=== PATIENT | female | born 1960 ===

== ENCOUNTER 2017-05-02 23:06 | Inpatient (IN) | payer OTHER ==
[2017-05-02] MEDS ORDERED: Sodium Chloride 0.9% 1,000 ML IV STA (23:28)
[2017-05-02] MEDS ORDERED: Sodium Chloride 0.9% 1,000 ML ONE (23:41)
[2017-05-02 23:42] LABS: BASO % 0.2 % (0.0-2.0); EOS % 0.2 % (0.0-4.0); HEMATOCRIT 45.2 % (34.0-47.0); LYMPH # 1.1 K/uL (1.0-4.3); LYMPH % 6.1 % (20.0-40.0); MEAN CELL VOLUME 93.5 fL (81.0-99.0); MEAN CORPUSCULAR HEMOGLOBIN 31.7 pg (27.0-31.0); MEAN CORPUSCULAR HGB CONC 33.9 g/dL (33.0-37.0); MONO # 0.6 K/uL (0.0-0.8); MONO % 3.3 % (0.0-10.0); PLATELET COUNT 262 K/uL (130-400); RED CELL DISTRIBUTION WIDTH 13.3 % (11.5-14.5); WHITE BLOOD COUNT 17.5 K/uL (4.8-10.8)
--- NOTE | 2017-05-02 23:50 | C.PDOC ---
History Of Present Illness 56 year old female presents to the ED c/o sudden inset of abdominal pain associated with vomit that started 2-3 hours ago. Patient reports she has a surgery in her intestines 15 years ago for being unable to pass stool. Patient denies fever, chills, nausea, diarrhea, back pain. Time Seen by Provider: 05/02/17 23:21 Chief Complaint (Nursing): Abdominal Pain History Per: Patient History/Exam Limitations: no limitations Onset/Duration Of Symptoms: Hrs Current Symptoms Are (Timing): Still Present Location Of Pain/Discomfort: Diffuse Radiation Of Pain To:: None Quality Of Discomfort: "Pain" Associated Symptoms: Vomiting, Loss Of Appetite Exacerbating Factors: None Alleviating Factors: None Recent travel outside of the [place]: No Additional History Per: Patient Abnormal Vaginal Bleeding: No Past Medical History Reviewed: Historical Data, Nursing Documentation, Vital Signs Vital Signs: Last Vital Signs Temp 97.8 F 05/02/17 23:14 Pulse 55 L 05/02/17 23:14 Resp 20 05/02/17 23:14 BP 171/100 H 05/02/17 23:14 Pulse Ox 99 05/03/17 01:31 - Medical History PMH: No Chronic Diseases Other Surgeries: Intestine surgery Family History: States: Unknown Family Hx - Social History Hx Alcohol Use: No Hx Substance Use: No Review Of Systems Constitutional: Negative for: Fever, Chills Cardiovascular: Negative for: Chest Pain, Palpitations Respiratory: Negative for: Cough, Shortness of Breath Gastrointestinal: Positive for: Vomiting, Abdominal Pain. Negative for: Nausea , Diarrhea Genitourinary: Negative for: Vaginal Discharge, Vaginal Bleeding Skin: Negative for: Rash Neurological: Negative for: Weakness, Numbness Physical Exam - Physical Exam Appears: Non-toxic, No Acute Distress Skin: Normal Color, Warm, Dry Head: Atraumatic, Normacephalic Nose: No Discharge, No Deformity Oral Mucosa: Moist Neck: Normal ROM, Supple Chest: Symmetrical Cardiovascular: Rhythm Regular, No Murmur Respiratory: Normal Breath Sounds, No Rales, No Rhonchi, No Wheezing Gastrointestinal/Abdominal: Soft, Tenderness (Diffuse), No Distention, No Rebound, Other (Surgical scar ) Back: No CVA Tenderness Extremity: Normal ROM, No Pedal Edema, No Calf Tenderness, No Deformity, No Swelling Neurological/Psych: Oriented x3, Normal Speech, Normal Cognition Gait: Steady ED Course And Treatment - Laboratory Results Result Diagrams: 05/02/17 23:40 05/02/17 23:40 O2 Sat by Pulse Oximetry: 99 (On RA) Pulse Ox Interpretation: Normal - CT Scan/US CT abd/pelvis Other Rad Studies (CT/US): Interpreted By Me, Read By Radiologist, Radiology Report Reviewed CT/US Interpretation: FINDINGS: Lower thorax: Heart is mildly enlarged. Lung bases are hyperinflated. There is minimal atelectasis. and scarring There is a small hiatal hernia. ABDOMEN: Liver: There is fatty infiltration of the liver. Gallbladder and bile ducts: Gallbladder is partially distended. Common duct is prominent. There is. fluid in the left colic gutter. There is pericholecystic fluid. Pancreas: Pancreas is diffusely enlarged. There is pancreatic and peripancreatic edema. Spleen: unremarkable. Adrenals: unremarkable. Kidneys and ureters: There are low attenuation left renal lesions too small to accurately. characterize.Kidneys and ureters are otherwise unremarkable. Stomach and bowel: Stomach is incompletely distended. There is antral wall thickening. There is. duodenal wall thickening. Rotation is normal. There is mild proximal jejunal wall thickening. There are. mildly distended small bowel loops in the right lower quadrant. There are mildly distended fecalized. ileal loops in the right lower quadrant. Adjacent ileal loops are decompressed. There is mild terminal. ileal wall thickening. There is ascending colon and hepatic flexure wall thickening. There is mild. transverse colon wall thickening. Appendix: See stomach and bowel. PELVIS: Bladder: unremarkable. Reproductive: Uterus and adnexal structures are unremarkable. ABDOMEN and PELVIS: Intraperitoneal space: There is no free air. Bones/joints: There are degenerative changes in the osseus structures. Soft tissues: There is a small fat containing umbilical hernia. Vasculature: Vascular structures are unremarkable. Lymph nodes: There is no pathologic adenopathy. IMPRESSION: Pancreatitis with inflammatory change in the gastric antrum, duodenum and jejunum. and free fluid; fecalized ileal loops in the pelvis suggest partial obstruction; enteritis versus. enterocolitis Medical Decision Making Medical Decision Making: Impression : abdominal pain Plan: * Blood work * Obstructive series X-Ray * Pepcid 20 mg IVP * IV fluids * UA * CT abd/pelvis Disposition - Disposition Disposition: HOSPITALIZED Disposition Time: 01:45 Condition: SERIOUS Forms: Twined (Rwandan) - Clinical Impression Clinical Impression: Pancreatitis, Small bowel obstruction - Scribe Statement The provider has reviewed the documentation as recorded by the Scribe Arpit Walker All medical record entries made by the Scribe were at my direction and personally dictated by me. I have reviewed the chart and agree that the record accurately reflects my personal performance of the history, physical exam, medical decision making, and the department course for this patient. I have also personally directed, reviewed, and agree with the discharge instructions and disposition.
[2017-05-02 23:56] LABS: ALB/GLOB RATIO 1.4 (1.0-2.1); ALKALINE PHOSPHATASE 139 U/L (38-126); ALT/SGPT 212 U/L (9-52); AST/SGOT 263 U/L (14-36); BILIRUBIN,TOTAL 0.8 mg/dL (0.2-1.3); BLOOD UREA NITROGEN 15 mg/dL (7-17); CARBON DIOXIDE 32 mmol/L (22-30); CHLORIDE 106 mmol/L (98-107); GFR AFRICAN-AMERICAN > 60; GLUCOSE,RANDOM 156 mg/dL (65-105); POTASSIUM 3.6 mmol/L (3.6-5.2); SODIUM 145 mmol/L (132-148); TOTAL PROTEIN 7.5 g/dL (6.3-8.3)
[2017-05-03 00:13] LABS: RBC URINE 5 /hpf (0-3); URINE BILIRUBIN NEGATIVE (NEGATIVE); URINE BLOOD NEGATIVE (NEGATIVE); URINE COLOR Yellow (YELLOW); URINE GLUCOSE (UA) NORMAL (Normal); URINE KETONE NEGATIVE (NEGATIVE); URINE LEUKOCYTE ESTERASE NEG Leu/uL (Negative); URINE PROTEIN 1+ mg/dL (NEGATIVE); WBC URINE 3 /hpf (0-5)
[2017-05-03] MEDS ORDERED: Sodium Chloride 0.9% 1,000 ML IV STA (00:38)
[2017-05-03] MEDS ORDERED: Piperacillin/Tazobact 3.375 GM in Sodium Chloride 100 ML IVPB STA (00:38)
[2017-05-03] MEDS ORDERED: HYDROmorphone 0.5 mg/0.5 ml ISec IVP STA (00:54)
[2017-05-03] MEDS ORDERED: Piperacillin/Tazobact 3.375 gm 100 ML IVPB ONE (00:57)
[2017-05-03] MEDS ORDERED: HYDROmorphone 0.5 mg/0.5 ml ISec ONE (00:57)
--- NOTE | 2017-05-03 01:29 | CT ---
EXAM: CT Abdomen and Pelvis With Intravenous Contrast EXAM DATE/TIME: 05/03/2017 12:15 AM CLINICAL HISTORY: 56 years old, female; Pain; Abdominal pain; Additional info: Obstruction TECHNIQUE: Axial computed tomography images of the abdomen and pelvis with intravenous contrast. All CT scans at this facility use one or more dose reduction techniques, viz.: automated exposure control; ma/kV adjustment per patient size (including targeted exams where dose is matched to indication; i.e. head); or iterative reconstruction technique. Coronal and sagittal reformatted images were created and reviewed. CONTRAST: 100 mL of [id number] administered intravenously. COMPARISON: There are no prior studies for comparison. FINDINGS: Lower thorax: Heart is mildly enlarged. Lung bases are hyperinflated. There is minimal atelectasis and scarring There is a small hiatal hernia. ABDOMEN: Liver: There is fatty infiltration of the liver. Gallbladder and bile ducts: Gallbladder is partially distended. Common duct is prominent. There is fluid in the left colic gutter. There is pericholecystic fluid. Pancreas: Pancreas is diffusely enlarged. There is pancreatic and peripancreatic edema. Spleen: unremarkable Adrenals: unremarkable Kidneys and ureters: There are low attenuation left renal lesions too small to accurately characterize.Kidneys and ureters are otherwise unremarkable. Stomach and bowel: Stomach is incompletely distended. There is antral wall thickening. There is duodenal wall thickening. Rotation is normal. There is mild proximal jejunal wall thickening. There are mildly distended small bowel loops in the right lower quadrant. There are mildly distended fecalized ileal loops in the right lower quadrant. Adjacent ileal loops are decompressed. There is mild terminal ileal wall thickening. There is ascending colon and hepatic flexure wall thickening. There is mild transverse colon wall thickening. Appendix: See stomach and bowel PELVIS: Bladder: unremarkable Reproductive: Uterus and adnexal structures are unremarkable. ABDOMEN and PELVIS: Intraperitoneal space: There is no free air. Bones/joints: There are degenerative changes in the osseus structures. Soft tissues: There is a small fat containing umbilical hernia. Vasculature: Vascular structures are unremarkable. Lymph nodes: There is no pathologic adenopathy. IMPRESSION: Pancreatitis with inflammatory change in the gastric antrum, duodenum and jejunum and free fluid; fecalized ileal loops in the pelvis suggest partial obstruction; enteritis versus enterocolitis Additional findings as described above.
[2017-05-03 01:40] LABS: NEUTROPHIL 88 % (50-75); REACTIVE LYMPHOCYTES 3 % (0-0); TOTAL CELLS COUNTED 100
[2017-05-03 02:17] LABS: AMYLASE 3706 U/L (30-110)
[2017-05-03] MEDS ORDERED: HYDROmorphone 0.5 mg/0.5 ml ISec IVP PRN (02:36)
--- NOTE | 2017-05-03 02:45 | CP.PCM.CON ---
History of Present Illness - History of Present Illness History of Present Illness: Surgery Consult Note. Dr. Headley 56yo F with no significant PMHx here for evaluation of Abdominal pain. Patient reports pain which started yesterday at 5PM, associated with nausea and vomiting. Abdominal pain is located in the epigastric area and radiates to the RLQ and LLQ. Described as sharp and severe in quality. Emesis x10 reported, clear-yellow fluid, no blood. Last BM at 6PM, normal caliber, no blood, not dark. Last food intake at 1PM, no appetite since. She denies any fever but does report chills. She reports having "intestinal surgery" in [place] 15 years ago. States that the current pain feels different and is more severe. No urinary complaints. Denies any cardiac history. No CP/SOB. No headaches. No dizziness. No recent travel. No sick contacts. PMD: none PMHx: denies PSHx: "intestinal surgery" 15 years ago in [place] Social Hx: From [place], lives with daughter in [place] for past 3 years. Denies Tobacco. Occasional ETOH use (last 3 weeks ago). Denies illicit drugs NDKA Review of Systems - Review of Systems All systems: reviewed and no additional remarkable complaints except - Constitutional Constitutional: Anorexia, Chills. absent: Fever, Headache - Cardiovascular Cardiovascular: absent: Chest Pain, Dyspnea - Respiratory Respiratory: absent: Dyspnea - Gastrointestinal Gastrointestinal: Abdominal Pain, Nausea, Vomiting. absent: Coffee Ground Emesis, Diarrhea, Hematemesis, Hematochezia, Melena - Genitourinary Genitourinary: absent: Difficulty Urinating, Dysuria, Urinary Incontinence Past Patient History - Past Social History Smoking Status: Never Smoked - PSYCHIATRIC Hx Substance Use: No Meds Allergies/Adverse Reactions: Allergies Allergy/AdvReac Type Severity Reaction Status Date / Time No Known Allergies Allergy Verified 05/02/17 23:13 - Medications Medications: Current Medications Hydromorphone HCl (Dilaudid) 0.5 mg IVP Q4H PRN PRN Reason: Pain, moderate (4-7) Lactated Ringer's (Lactated Ringer's) 1,000 mls @ 250 mls/hr IV .Q4H ALYSSA Piperacillin Sod/Tazobactam Sod (Zosyn 3.375 Gm Iv Premix) 3.375 gm in 50 mls @ 100 mls/hr IVPB Q6H ALYSSA Ondansetron HCl (Zofran Inj) 4 mg IVP Q6H PRN PRN Reason: Nausea/Vomiting Physical Exam - Constitutional Appears: Non-toxic, No Acute Distress - Head Exam Head Exam: ATRAUMATIC, NORMAL INSPECTION, NORMOCEPHALIC - Eye Exam Eye Exam: EOMI - ENT Exam ENT Exam: Mucous Membranes Moist - Neck Exam Neck exam: Positive for: Full Rom - Respiratory Exam Respiratory Exam: NORMAL BREATHING PATTERN. absent: Accessory Muscle Use, Respiratory Distress - Cardiovascular Exam Cardiovascular Exam: RRR. absent: JVD - GI/Abdominal Exam GI & Abdominal Exam: Soft. absent: Distended, Firm, Guarding, Rebound, Rigid Additional comments: Tender to palpation in the Epigastric area, RLQ and LLQ. No Burris's. No Rebound, no guarding. Non distended. Midline incision scar noted infraumbilical, well healed - Extremities Exam Extremities exam: Positive for: normal inspection. Negative for: calf tenderness - Neurological Exam Neurological exam: Alert, Oriented x3 - Skin Skin Exam: Dry, Intact, Normal Color, Warm Results - Vital Signs Recent Vital Signs: Last Vital Signs Temp 97.8 F 05/02/17 23:14 Pulse 55 L 05/02/17 23:14 Resp 20 05/02/17 23:14 BP 171/100 H 05/02/17 23:14 Pulse Ox 99 05/03/17 01:43 - Labs Result Diagrams: 05/02/17 23:40 05/02/17 23:40 Labs: Laboratory Results - last 24 hr 05/02/17 05/02/17 05/02/17 23:40 23:40 23:53 WBC 17.5 H RBC 4.84 Hgb 15.3 Hct 45.2 MCV 93.5 MCH 31.7 H MCHC 33.9 RDW 13.3 Plt Count 262 MPV 10.0 Neut % (Auto) 90.2 H Lymph % (Auto) 6.1 L Piatt % (Auto) 3.3 Eos % (Auto) 0.2 Baso % (Auto) 0.2 Neut # 15.7 H Lymph # 1.1 Piatt # 0.6 Eos # 0.0 Baso # 0.0 Neutrophils % (Manual) 88 H Band Neutrophils % 2 Lymphocytes % (Manual) 5 L Reactive Lymphs % 3 H Monocytes % (Manual) 2 Platelet Estimate Normal Sodium 145 Potassium 3.6 Chloride 106 Carbon Dioxide 32 H Anion Gap 10 BUN 15 Creatinine 0.7 Est GFR ( Amer) > 60 Est GFR (Non-Af Amer) > 60 Random Glucose 156 H Calcium 8.0 L Total Bilirubin 0.8 AST 263 H ALT 212 H Alkaline Phosphatase 139 H Total Protein 7.5 Albumin 4.3 Globulin 3.2 Albumin/Globulin Ratio 1.4 Amylase Lipase Urine Color Yellow Urine Clarity Clear Urine pH 6.0 Ur Specific Abell 1.021 Urine Protein 1+ H Urine Glucose (UA) Normal Urine Ketones Negative Urine Blood Negative Urine Nitrate Negative Urine Bilirubin Negative Urine Urobilinogen 2.0 H Ur Leukocyte Esterase Neg Urine WBC (Auto) 3 Urine RBC (Auto) 5 H Ur Squamous Epith Cells 10 H 05/03/17 01:38 WBC RBC Hgb Hct MCV MCH MCHC RDW Plt Count MPV Neut % (Auto) Lymph % (Auto) Piatt % (Auto) Eos % (Auto) Baso % (Auto) Neut # Lymph # Piatt # Eos # Baso # Neutrophils % (Manual) Band Neutrophils % Lymphocytes % (Manual) Reactive Lymphs % Monocytes % (Manual) Platelet Estimate Sodium Potassium Chloride Carbon Dioxide Anion Gap BUN Creatinine Est GFR ( Amer) Est GFR (Non-Af Amer) Random Glucose Calcium Total Bilirubin AST ALT Alkaline Phosphatase Total Protein Albumin Globulin Albumin/Globulin Ratio Amylase 3706 H Lipase 49046 H Urine Color Urine Clarity Urine pH Ur Specific Abell Urine Protein Urine Glucose (UA) Urine Ketones Urine Blood Urine Nitrate Urine Bilirubin Urine Urobilinogen Ur Leukocyte Esterase Urine WBC (Auto) Urine RBC (Auto) Ur Squamous Epith Cells Assessment & Plan - Assessment and Plan (Free Text) Assessment: 56yo F with Acute Pancreatitis, Enterocolitis and distended gallbladder. Possible distal partial bowel obstruction - LFTs elevated. Tbili wnl - Leukocytosis - CT scan noted - F/u Abd US to r/o cholelithiasis - Aggressive IVF - NPO bowel rest - IV Abx - Zofran prn - May consider NGT if patient continues to vomit Further recs as per Dr. Fang Blake PGY1 surgery pager: [phone]
--- NOTE | 2017-05-03 03:06 | CP.PCM.HP ---
<Blair Young - Last Filed: 05/03/17 03:33> History of Present Illness - History of Present Illness History of Present Illness: CC: Abdominal Pain HPI: Patient is a 56 year old female with no past medical history who was brought to the ED by her daughters with complaint of abdominal pain that started yesterday between 5-6pm, which patient describes as "tightness" that is diffuse. Patient is unable to quantify her pain but states that it has increased in intensity since its onset. Patient took pepto-bismol, which provided no relief and admits to associated symptoms of nausea and vomiting ( clear yellow fluid about 9-10 times since the onset of her abdominal pain). Patient's last BM was around 5-6pm yesterday. Patient denies fever, chills, changes in her bowel movement, chest pain, palpitations, SOB, dizziness, hematochezia, hematemesis itchiness and recent sickness PMD: None PMHx: Unknown PSHx: intestinal surgery due to constipation in [place] ( 15-18 years ago) FHx: Diabetes Medications: None Allergies: NKDA Social Hx: Lives with her two daughters. Denies current or former use of tobacco and illicit drugs. Admits to ETOH socially Present on Admission - Present on Admission Any Indicators Present on Admission: No Review of Systems - Constitutional Constitutional: absent: Chills, Excessive Sweating, Fever, Headache, Weakness - EENT Eyes: absent: Blurred Vision, Change in Vision Ears: absent: Dizziness - Cardiovascular Cardiovascular: absent: Chest Pain, Chest Pain at Rest, Chest Pain with Activity , Dyspnea, Dyspnea on Exertion, Edema, Lightheadedness, Palpitations - Respiratory Respiratory: absent: Dyspnea, Hemoptysis, Dyspnea on Exertion - Gastrointestinal Gastrointestinal: Abdominal Pain, Nausea, Vomiting. absent: Change in Bowel Habits, Change in Stool Character, Constipation, Cramping, Diarrhea, Dysphagia, Excessive Flatus, Hematemesis, Hematochezia - Genitourinary Genitourinary: absent: Difficulty Urinating, Dysuria, Hematuria - Musculoskeletal Musculoskeletal: absent: Back Pain - Integumentary Integumentary: absent: Pruritus, Jaundice - Neurological Neurological: absent: Dizziness, Headaches - Endocrine Endocrine: absent: Fatigue, Palpitations Past Patient History - Past Social History Smoking Status: Never Smoked - PSYCHIATRIC Hx Substance Use: No Meds Allergies/Adverse Reactions: Allergies Allergy/AdvReac Type Severity Reaction Status Date / Time No Known Allergies Allergy Verified 05/02/17 23:13 Physical Exam - Constitutional Appears: No Acute Distress - Head Exam Head Exam: ATRAUMATIC, NORMAL INSPECTION - Eye Exam Eye Exam: EOMI, Normal appearance - ENT Exam ENT Exam: Mucous Membranes Moist - Respiratory Exam Respiratory Exam: Clear to Auscultation Bilateral, NORMAL BREATHING PATTERN. absent: Decreased Breath Sounds, Rales, Rhonchi, Wheezes - Cardiovascular Exam Cardiovascular Exam: REGULAR RHYTHM, +S1, +S2 - GI/Abdominal Exam GI & Abdominal Exam: Soft, Tenderness Additional comments: tenderness to palpation diffusely Negative lockett sign Midline infraumbilical incision scar - Extremities Exam Extremities exam: Positive for: normal inspection. Negative for: calf tenderness, pedal edema, tenderness - Back Exam Back exam: absent: CVA tenderness (L), CVA tenderness (R), tenderness - Neurological Exam Neurological exam: Alert, Oriented x3 - Psychiatric Exam Psychiatric exam: Normal Affect, Normal Mood - Skin Skin Exam: Normal Color Results - Vital Signs Recent Vital Signs: Last Vital Signs Temp 97.8 F 05/02/17 23:14 Pulse 55 L 05/02/17 23:14 Resp 20 05/02/17 23:14 BP 171/100 H 05/02/17 23:14 Pulse Ox 99 05/03/17 01:43 - Labs Result Diagrams: 05/02/17 23:40 05/02/17 23:40 Labs: Laboratory Results - last 24 hr 05/02/17 05/02/17 05/02/17 23:40 23:40 23:53 WBC 17.5 H RBC 4.84 Hgb 15.3 Hct 45.2 MCV 93.5 MCH 31.7 H MCHC 33.9 RDW 13.3 Plt Count 262 MPV 10.0 Neut % (Auto) 90.2 H Lymph % (Auto) 6.1 L [place] % (Auto) 3.3 Eos % (Auto) 0.2 Baso % (Auto) 0.2 Neut # 15.7 H Lymph # 1.1 [place] # 0.6 Eos # 0.0 Baso # 0.0 Neutrophils % (Manual) 88 H Band Neutrophils % 2 Lymphocytes % (Manual) 5 L Reactive Lymphs % 3 H Monocytes % (Manual) 2 Platelet Estimate Normal Sodium 145 Potassium 3.6 Chloride 106 Carbon Dioxide 32 H Anion Gap 10 BUN 15 Creatinine 0.7 Est GFR ( Amer) > 60 Est GFR (Non-Af Amer) > 60 Random Glucose 156 H Calcium 8.0 L Total Bilirubin 0.8 AST 263 H ALT 212 H Alkaline Phosphatase 139 H Total Protein 7.5 Albumin 4.3 Globulin 3.2 Albumin/Globulin Ratio 1.4 Amylase Lipase Urine Color Yellow Urine Clarity Clear Urine pH 6.0 Ur Specific [place] 1.021 Urine Protein 1+ H Urine Glucose (UA) Normal Urine Ketones Negative Urine Blood Negative Urine Nitrate Negative Urine Bilirubin Negative Urine Urobilinogen 2.0 H Ur Leukocyte Esterase Neg Urine WBC (Auto) 3 Urine RBC (Auto) 5 H Ur Squamous Epith Cells 10 H 05/03/17 01:38 WBC RBC Hgb Hct MCV MCH MCHC RDW Plt Count MPV Neut % (Auto) Lymph % (Auto) [place] % (Auto) Eos % (Auto) Baso % (Auto) Neut # Lymph # [place] # Eos # Baso # Neutrophils % (Manual) Band Neutrophils % Lymphocytes % (Manual) Reactive Lymphs % Monocytes % (Manual) Platelet Estimate Sodium Potassium Chloride Carbon Dioxide Anion Gap BUN Creatinine Est GFR ( Amer) Est GFR (Non-Af Amer) Random Glucose Calcium Total Bilirubin AST ALT Alkaline Phosphatase Total Protein Albumin Globulin Albumin/Globulin Ratio Amylase 3706 H Lipase 34685 H Urine Color Urine Clarity Urine pH Ur Specific [place] Urine Protein Urine Glucose (UA) Urine Ketones Urine Blood Urine Nitrate Urine Bilirubin Urine Urobilinogen Ur Leukocyte Esterase Urine WBC (Auto) Urine RBC (Auto) Ur Squamous Epith Cells Assessment & Plan (1) Pancreatitis Assessment and Plan: Surgery consult, Dr. Headley----> Help appreciated * Management as per recommendation On admission: Amylase/Lipase: 32,575/3706 AST/ALT:263/212 Imaging: CT Abdomen/Pelvis: Pancreatitis with inflammatory change in the gastric antrum, duodenum and jejunum and free fluid; fecalized ileal loops in the pelvis suggest partial obstruction; enteritis versus enterocolitis. Gallbladder is partially distended. Common duct is prominent. There is fluid in the left colic gutter. There is pericholecystic fluid. Pancreas is diffusely enlarged. There is pancreatic and peripancreatic edema. Medications/Management: NPO LR @ 250 mls/hr Morphine 1mg Q4H prn ( Moderate pain) Morphine 2mg Q4H prn ( Severe pain) Cipro 400mg IV Q12H (Started 05/03) Flagyl 500mg IV Q8H (Started 05/03) Labs: * F/u lipid panel Status: Acute (2) Partial small bowel obstruction Assessment and Plan: CT Abdomen/Pelvis: fecalized ileal loops in the pelvis suggest partial obstruction Surgery consult, Dr. Headley----> Help appreciated * Management as per recommendation Management: * NPO Status: Acute (3) Leukocytosis Assessment and Plan: On admission: WBC: 17.5, no bandemia Possibly secondary to acute pancreatitis Medication/Management: * LR @ 250 mls/hr * Cipro 400mg IV Q12H ( Started 05/03) * Flagyl 500mg IV Q8H ( Started 05/03) Status: Acute (4) Elevated liver enzymes Assessment and Plan: Surgery consult, Dr. Headley----> Help appreciated * Management as per recommendation On admission: AST/ALT:263/212 Imaging: CT Abdomen/Pelvis: Gallbladder is partially distended. Common duct is prominent. There is fluid in the left colic gutter. There is pericholecystic fluid. Status: Acute (5) Elevated random blood glucose level Assessment and Plan: On admission: * 156 F/u HgbA1C Accuchecks Q8H Status: Acute (6) Prophylactic measure Assessment and Plan: GI: Protonix 40mg PO daily DVT: SCDs, anticogulation on hold incase surgical intervention is indicated Status: Acute <Rudy Liu - Last Filed: 05/03/17 06:25> Results - Vital Signs Recent Vital Signs: Last Vital Signs Temp 98.8 F 05/03/17 04:50 Pulse 55 L 05/03/17 04:50 Resp 20 05/03/17 04:50 BP 150/88 05/03/17 04:50 Pulse Ox 95 05/03/17 04:50 - Labs Result Diagrams: 05/02/17 23:40 05/02/17 23:40 Labs: Laboratory Results - last 24 hr 05/02/17 05/02/17 05/02/17 23:40 23:40 23:53 WBC 17.5 H RBC 4.84 Hgb 15.3 Hct 45.2 MCV 93.5 MCH 31.7 H MCHC 33.9 RDW 13.3 Plt Count 262 MPV 10.0 Neut % (Auto) 90.2 H Lymph % (Auto) 6.1 L [place] % (Auto) 3.3 Eos % (Auto) 0.2 Baso % (Auto) 0.2 Neut # 15.7 H Lymph # 1.1 [place] # 0.6 Eos # 0.0 Baso # 0.0 Neutrophils % (Manual) 88 H Band Neutrophils % 2 Lymphocytes % (Manual) 5 L Reactive Lymphs % 3 H Monocytes % (Manual) 2 Platelet Estimate Normal Sodium 145 Potassium 3.6 Chloride 106 Carbon Dioxide 32 H Anion Gap 10 BUN 15 Creatinine 0.7 Est GFR ( Amer) > 60 Est GFR (Non-Af Amer) > 60 Random Glucose 156 H Calcium 8.0 L Total Bilirubin 0.8 AST 263 H ALT 212 H Alkaline Phosphatase 139 H Total Protein 7.5 Albumin 4.3 Globulin 3.2 Albumin/Globulin Ratio 1.4 Amylase Lipase Urine Color Yellow Urine Clarity Clear Urine pH 6.0 Ur Specific [place] 1.021 Urine Protein 1+ H Urine Glucose (UA) Normal Urine Ketones Negative Urine Blood Negative Urine Nitrate Negative Urine Bilirubin Negative Urine Urobilinogen 2.0 H Ur Leukocyte Esterase Neg Urine WBC (Auto) 3 Urine RBC (Auto) 5 H Ur Squamous Epith Cells 10 H 05/03/17 01:38 WBC RBC Hgb Hct MCV MCH MCHC RDW Plt Count MPV Neut % (Auto) Lymph % (Auto) [place] % (Auto) Eos % (Auto) Baso % (Auto) Neut # Lymph # [place] # Eos # Baso # Neutrophils % (Manual) Band Neutrophils % Lymphocytes % (Manual) Reactive Lymphs % Monocytes % (Manual) Platelet Estimate Sodium Potassium Chloride Carbon Dioxide Anion Gap BUN Creatinine Est GFR ( Amer) Est GFR (Non-Af Amer) Random Glucose Calcium Total Bilirubin AST ALT Alkaline Phosphatase Total Protein Albumin Globulin Albumin/Globulin Ratio Amylase 3706 H Lipase 67469 H Urine Color Urine Clarity Urine pH Ur Specific [place] Urine Protein Urine Glucose (UA) Urine Ketones Urine Blood Urine Nitrate Urine Bilirubin Urine Urobilinogen Ur Leukocyte Esterase Urine WBC (Auto) Urine RBC (Auto) Ur Squamous Epith Cells Assessment & Plan - Date & Time Date: 05/03/17 (I have seen and examined the patient. I agree with the findings and plan of care as documented by Dr. Young. Patient with acute pancreatitis and partial SBO. Consult to surgery. also with Leukocytosis. Cipro and flagyl for now. Check blood cultures. NPO. IVF. Check Fasting lipid panel. Symptomatic treatment. Monitor for acute changes.) Time: 06:23 Attending/Attestation - Attestation I have personally seen and examined this patient.: Yes I have fully participated in the care of the patient.: Yes I have reviewed all pertinent clinical information: Yes
[2017-05-03] MEDS ORDERED: Lactated Ringer's 1,000 ML ONE (03:38)
[2017-05-03] MEDS: Lactated Ringer's 1,000 ML IV SCH ×7 (04:07→23:35)
[2017-05-03] MEDS: Ciprofloxacin 400mg/200ml D5W 400 MG/200 ML BAG IVPB SCH ×2 (04:20→14:21)
[2017-05-03] MEDS ORDERED: Ciprofloxacin 400mg/200ml D5W 400 MG/200 ML BAG IVPB ONE (04:20)
[2017-05-03] MEDS: metroNIDAZOLE IV 500 mg/100 ml 500 MG/100 ML BAG IVPB SCH ×3 (06:22→20:52)
--- NOTE | 2017-05-03 06:49 | US ---
EXAM: US Abdomen Complete CLINICAL HISTORY: 56 years old, female; Pain and abnormal findings; Abnormal radiologic finding of the abdomen; Radiologic exam and body structure: CT abd; Abdominal pain; Epigastric; Additional info: Distended gallbladder TECHNIQUE: Real-time ultrasound of the abdomen (complete) with image documentation. Real time cine loop images are submitted. COMPARISON: No relevant prior studies available. FINDINGS: Artifacts: Limited due to bowel gas shadowing. Limited due to shadowing from the ribs. Liver: Echogenic fatty liver measuring 15.4 cm. Limited evaluation of the liver due to shadowing. The hepatic flow Gallbladder: Partially distended gallbladder with multiple gallstones and 4 mm gallbladder wall thickening and minimal pericholecystic fluid.There was right upper quadrant tenderness during the sonographic examination. Common bile duct: The common bile duct measures 7 mm which is prominent. Pancreas: The pancreas is not well-seen. Echogenic pancreas. Kidneys: Right kidney measures 10.1 x 4.3 x 4.8 cm. The left kidney measures 9.5 x 5.1 x 5.7 cm. There is left renal hypoechoic cyst with calcification measuring 0.8 x 0.8 x 0.9 cm. No stones. No hydronephrosis. Spleen: The spleen measures 9.4 cm. Spleen calcifications. Aorta: The proximal aorta measures 1.8 cm. The mid abdominal aorta is obscured by bowel gas. Inferior vena cava: The IVC is seen. IMPRESSION: 1. Partially distended gallbladder with multiple gallstones and 4 mm gallbladder wall thickening and minimal pericholecystic fluid.There was right upper quadrant tenderness during the sonographic examination. Correlation with clinical data is recommended to evaluate for acute cholecystitis. 2. Prominent common bile duct measuring 7 mm.
[2017-05-03] MEDS ORDERED: Piperacill/Tazo 3.375gm in Dex 3.375 GM/50 ML BAG IVPB SCH (07:45)
[2017-05-03 09:13] LABS: CHOLESTEROL 170 mg/dL (0-199)
[2017-05-03] MEDS: Pantoprazole 40 mg EC Tab PO SCH (09:29)
--- NOTE | 2017-05-03 09:59 | CP.PCM.PN ---
Addendum entered and electronically signed by Elba León DO 05/03/17 17:15: Nidia (Daughter): [phone] Addendum entered and electronically signed by Elba León DO 05/03/17 13:45: A1c is 5.9 Physical exam: RUQ tenderness and Midepigastric pain per DR. Carlos Alberto Ruth Patient explained gallstone pancreatitis and that she is going to be scheduled for MRCP to evaluate patient further, likely to need gallbladder surgery when pancreatitis resolves Addendum entered and electronically signed by Elba León DO 05/03/17 10:39: 05/03 social work evaluation: Patient states she does not have insurance and is worried about paying for the exams during her stay at the hospital Original Note: <Elba León - Last Filed: 05/03/17 10:37> Subjective - Date & Time of Evaluation Date of Evaluation: 05/03/17 Time of Evaluation: 09:58 - Subjective Subjective: Progress note for Dr. Ruth Patient seen and examined at bedside. admits to abdominal pain mainly in midepigastric, and lower quadrants bilaterally. Patient denies fever, chills, nausea, vomiting, diarrhea. Patient states she does not have insurance and is worried about paying for the treatments ant exams Objective - Vital Signs/Intake and Output Vital Signs (last 24 hours): Temp Pulse Resp BP Pulse Ox 98.8 F 55 L 20 150/88 95 05/03/17 04:50 05/03/17 04:50 05/03/17 04:50 05/03/17 04:50 05/03/17 04:50 Intake and Output: 05/03/17 05/03/17 06:59 18:59 Intake Total 450 Balance 450 - Medications Medications: Current Medications Cholestyramine Resin (Prevalite) 4 gm PO QID ALYSSA Lactated Ringer's (Lactated Ringer's) 1,000 mls @ 250 mls/hr IV .Q4H [facility] Last Admin: 05/03/17 04:07 Dose: 250 mls/hr Ciprofloxacin (Cipro 400mg/200ml Dsw) 400 mg in 200 mls @ 133 mls/hr IVPB Q12H [facility] Last Admin: 05/03/17 04:20 Dose: 133 mls/hr Metronidazole (Flagyl) 500 mg in 100 mls @ 100 mls/hr IVPB Q8 [facility] Last Admin: 05/03/17 06:22 Dose: 100 mls/hr Morphine Sulfate (Morphine) 1 mg IVP Q4 PRN PRN Reason: Pain, moderate (4-7) Last Admin: 05/03/17 04:12 Dose: 1 mg Morphine Sulfate (Morphine) 2 mg IVP Q4 PRN PRN Reason: Pain, severe (8-10) Ondansetron HCl (Zofran Inj) 4 mg IVP Q6H PRN PRN Reason: Nausea/Vomiting Pantoprazole Sodium (Protonix Ec Tab) 40 mg PO DAILY [facility] Last Admin: 05/03/17 09:29 Dose: 40 mg - Labs Labs: 05/02/17 23:40 05/02/17 23:40 - Constitutional Appears: Non-toxic, No Acute Distress - Head Exam Head Exam: NORMAL INSPECTION - Eye Exam Eye Exam: EOMI, Normal appearance Pupil Exam: PERRL - ENT Exam ENT Exam: Mucous Membranes Moist, Normal Exam. absent: Mucous Membranes Dry - Neck Exam Neck Exam: Full ROM. absent: Lymphadenopathy, Thyromegaly - Cardiovascular Exam Cardiovascular Exam: Bradycardia, REGULAR RHYTHM, +S1, +S2 - GI/Abdominal Exam GI & Abdominal Exam: Distended, Soft, Tenderness. absent: Pulsatile Mass, Rebound - Extremities Exam Extremities Exam: Full ROM, Normal Inspection. absent: Pedal Edema - Neurological Exam Neurological Exam: Alert, Awake - Psychiatric Exam Psychiatric exam: Normal Affect, Normal Mood - Skin Skin Exam: Dry, Intact, Normal Color, Warm Assessment and Plan - Assessment and Plan (Free Text) Assessment: (1) Pancreatitis Assessment and Plan: Surgery consult, Dr. Headley----> Help appreciated * Management as per recommendation On admission: Lipase 91552 Amylase 3706 05/02 AST/ALT:263/212 Imaging: CT Abdomen/Pelvis: Pancreatitis with inflammatory change in the gastric antrum, duodenum and jejunum and free fluid; fecalized ileal loops in the pelvis suggest partial obstruction; enteritis versus enterocolitis. Gallbladder is partially distended. Common duct is prominent. There is fluid in the left colic gutter. There is pericholecystic fluid. Pancreas is diffusely enlarged. There is pancreatic and peripancreatic edema. Medications/Management: NPO LR @ 250 mls/hr Morphine 1mg Q4H prn ( Moderate pain) Morphine 2mg Q4H prn ( Severe pain) Cipro 400mg IV Q12H (Started 05/03) Flagyl 500mg IV Q8H (Started 05/03) Labs: * 05/03 Lipid panel: Trigylcerides 61, Cholesterol 170, LDL 120, HDL 44 Status: Acute (2) Partial small bowel obstruction Assessment and Plan: CT Abdomen/Pelvis: fecalized ileal loops in the pelvis suggest partial obstruction Surgery consult, Dr. Headley----> Help appreciated * Management as per recommendation Management: * NPO Status: Acute (3) Leukocytosis Assessment and Plan: On admission: WBC: 17.5, no bandemia Possibly secondary to acute pancreatitis Medication/Management: * LR @ 250 mls/hr * Cipro 400mg IV Q12H ( Started 05/03) * Flagyl 500mg IV Q8H ( Started 05/03) Status: Acute (4) Elevated liver enzymes Assessment and Plan: Surgery consult, Dr. Headley----> Help appreciated * Management as per recommendation On admission: 05/02 AST/ALT:263/212 Imaging: CT Abdomen/Pelvis: Gallbladder is partially distended. Common duct is prominent. There is fluid in the left colic gutter. There is pericholecystic fluid. Status: Acute (5) Elevated random blood glucose level Assessment and Plan: On admission: * 156 F/u HgbA1C Accuchecks Q8H Status: Acute (6) Prophylaxis Assessment and Plan: GI: Protonix 40mg PO daily DVT: SCDs, anticogulation on hold incase surgical intervention is indicated Status: Acute Elba León DO PGY1 d/w Dr. Carlos Alberto Ruth <Carlos Alberto Ruth - Last Filed: 05/03/17 20:49> Objective - Vital Signs/Intake and Output Vital Signs (last 24 hours): Temp Pulse Resp BP Pulse Ox 98.3 F 57 L 20 152/70 H 96 05/03/17 15:00 05/03/17 15:00 05/03/17 15:00 05/03/17 17:53 05/03/17 15:00 Intake and Output: 05/03/17 05/04/17 18:59 06:59 Intake Total 450 Balance 450 - Medications Medications: Current Medications Docusate Sodium (Colace) 100 mg PO TID [facility] Last Admin: 05/03/17 17:25 Dose: 100 mg Heparin Sodium (Porcine) (Heparin) 5,000 units SC Q8 [facility] Last Admin: 05/03/17 15:48 Dose: 5,000 units Lactated Ringer's (Lactated Ringer's) 1,000 mls @ 250 mls/hr IV .Q4H [facility] Last Admin: 05/03/17 14:20 Dose: 250 mls/hr Ciprofloxacin (Cipro 400mg/200ml Dsw) 400 mg in 200 mls @ 133 mls/hr IVPB Q12H [facility] Last Admin: 05/03/17 14:21 Dose: 133 mls/hr Metronidazole (Flagyl) 500 mg in 100 mls @ 100 mls/hr IVPB Q8 [facility] Last Admin: 05/03/17 14:18 Dose: 100 mls/hr Morphine Sulfate (Morphine) 1 mg IVP Q4 PRN PRN Reason: Pain, moderate (4-7) Last Admin: 05/03/17 04:12 Dose: 1 mg Morphine Sulfate (Morphine) 2 mg IVP Q4 PRN PRN Reason: Pain, severe (8-10) Last Admin: 05/03/17 17:24 Dose: 2 mg Ondansetron HCl (Zofran Inj) 4 mg IVP Q6H PRN PRN Reason: Nausea/Vomiting Pantoprazole Sodium (Protonix Ec Tab) 40 mg PO DAILY [facility] Last Admin: 05/03/17 09:29 Dose: 40 mg - Labs Labs: 05/02/17 23:40 05/02/17 23:40 Attending/Attestation - Attestation I have personally seen and examined this patient.: Yes I have fully participated in the care of the patient.: Yes I have reviewed all pertinent clinical information, including history, physical exam and plan: Yes Notes (Text): 05/03/17 20:21 Patient was seen and examined at 11:40 AM 05/03/17 356 B with Daughter Nidia [phone] who translated Armenian Exam, assessment and plan were thoroughly gone over with the resident. Also on ROS: NO bowel movement NO vomiting (+) Nausea NOT passing aldo today Also on EXAM: GI: RUQ and Epigastric Pain with palpation, NO guarding/rebound tenderness Assessments: 1). Acute Pancreatitis This could be secondary to Gallstone Pancreatitis considering findings on CT Abdomen/Pelvis and U/S Abdomen: gallstone in gallbladder and dilated CBD MRCP ordered 05/03/17 but could not be performed: Medicine Team please make sure that it is done on morning 05/04/17. LR 250 ml/hr NPO for now GI Dr. Luna/Mk 2). Partial Small Bowel Obstruction She is not vomiting but if she does and is persistent then have NGT placed Obstruction Series shows fecal retention in the right colon and rectum with nonspecific small bowel gas pattern Surgery Dr. Headley 3). Possible Cholecystitis (likely) As seen on U/S Abdomen Will need to resolve the Pancreatitis first Explained to Daughter Nidia that the Gallbladder will likely have to be removed F/U with Surgery Team's recommendations concerning this issue 4). Elevated LFTs Likely secondary to the Cholecystitis, Pancreatitis F/U MRCP 5). Leukocytosis Secondary to Cholecystitis? Secondary to Pancreatitis? Secondary to Enteritis/Entercolitis as seen on CT Abdomen/Pelvis? Ciprofloxaxin 400 mg IV Q12H Metronidazole 500 mg IV Q8H F/U Blood Culture F/U Urine Culture 6). Prophylaxis Morphine 1 mg IV Q4H PRN Moderate Pain Morphine 2 mg IV Q4H PRN Severe Pain Protonix 40 mg IV 1x/day Heparin 5,000 units SC Q8H and Bilateral SCDs Colace 100 mg PO TID Zofran 4 mg IV Q6h PRN N/V Carlos Alberto Ruth D.O.
[2017-05-03] MEDS ORDERED: Cholestyramine 4 gm/5.5 gm UD Packet PO SCH (10:00)
--- NOTE | 2017-05-03 10:24 | CP.PCM.CON ---
<Ratna Molina - Last Filed: 05/03/17 10:19> History of Present Illness - History of Present Illness History of Present Illness: Gastroenterology Fellow/PGY5 Consult Note 56 year old female with history of bowel resection (15 years ago) presenting with abdominal pain and vomiting. Patient and daughter at bedside note she had sudden onset of severe epigastric to mid abdominal pain without radiation to back or shoulder. She endorses ten episodes of bilious vomiting. Associated chills and sweats. Denies further vomiting since admission and abdominal pain slightly improved. Denies fever, hematemesis, diarrhea, constipation, melena, hematochezia, or unintentional weight loss. She had not had similar symptoms in the past or diagnose with cholelithiasis in the past. No prior EGD or colonoscopy. Family- denies stomach cancer, colon cancer Social- denies tobacco, alcohol, illicit drug use Surgery- bowel resection for "constipation" 15 years ago in [place] Review of Systems - Review of Systems Review of Systems: 12-point review of systems negative except for as above Past Patient History - Past Medical History & Family History Past Medical History?: Yes - Past Social History Smoking Status: Never Smoked - CARDIAC Hx Cardiac Disorders: No - PULMONARY Hx Respiratory Disorders: No - NEUROLOGICAL Hx Neurological Disorder: No - HEENT Hx HEENT Problems: No - RENAL Hx Chronic Kidney Disease: No - ENDOCRINE/METABOLIC Hx Endocrine Disorders: No - HEMATOLOGICAL/ONCOLOGICAL Hx Blood Disorders: No - INTEGUMENTARY Hx Dermatological Problems: No - MUSCULOSKELETAL/RHEUMATOLOGICAL Hx Falls: No - GASTROINTESTINAL Hx Gastrointestinal Disorders: Yes Other/Comment: "intestinal surgery 15-18 years ago from [place]" - GENITOURINARY/GYNECOLOGICAL Hx Genitourinary Disorders: No - PSYCHIATRIC Hx Substance Use: No - SURGICAL HISTORY Hx Surgeries: Yes Other/Comment: "intestinal surgery 15-18 years ago from [place]" - ANESTHESIA Hx Anesthesia: Yes Hx Anesthesia Reactions: No Hx Malignant Hyperthermia: No Meds Allergies/Adverse Reactions: Allergies Allergy/AdvReac Type Severity Reaction Status Date / Time No Known Allergies Allergy Verified 05/02/17 23:13 - Medications Medications: Current Medications Lactated Ringer's (Lactated Ringer's) 1,000 mls @ 250 mls/hr IV .Q4H [facility] Last Admin: 05/03/17 04:07 Dose: 250 mls/hr Ciprofloxacin (Cipro 400mg/200ml Dsw) 400 mg in 200 mls @ 133 mls/hr IVPB Q12H [facility] Last Admin: 05/03/17 04:20 Dose: 133 mls/hr Metronidazole (Flagyl) 500 mg in 100 mls @ 100 mls/hr IVPB Q8 [facility] Last Admin: 05/03/17 06:22 Dose: 100 mls/hr Morphine Sulfate (Morphine) 1 mg IVP Q4 PRN PRN Reason: Pain, moderate (4-7) Last Admin: 05/03/17 04:12 Dose: 1 mg Morphine Sulfate (Morphine) 2 mg IVP Q4 PRN PRN Reason: Pain, severe (8-10) Ondansetron HCl (Zofran Inj) 4 mg IVP Q6H PRN PRN Reason: Nausea/Vomiting Pantoprazole Sodium (Protonix Ec Tab) 40 mg PO DAILY [facility] Last Admin: 05/03/17 09:29 Dose: 40 mg Physical Exam - Constitutional Appears: Non-toxic, No Acute Distress - Head Exam Head Exam: ATRAUMATIC, NORMOCEPHALIC - Eye Exam Eye Exam: EOMI, PERRL. absent: Scleral icterus Pupil Exam: PERRL. absent: Miosis, Mydriatic - ENT Exam ENT Exam: Mucous Membranes Moist, Normal Oropharynx - Neck Exam Neck exam: Positive for: Full Rom, Normal Inspection - Respiratory Exam Respiratory Exam: Clear to Auscultation Bilateral. absent: Rales, Rhonchi, Wheezes - Cardiovascular Exam Cardiovascular Exam: RRR, +S1, +S2. absent: Gallop, Rubs - GI/Abdominal Exam GI & Abdominal Exam: Normal Bowel Sounds, Soft, Tenderness. absent: Distended, Firm, Guarding, Organomegaly, Rebound, Rigid Additional comments: diffuse tenderness to palpation - Extremities Exam Extremities exam: Positive for: normal inspection. Negative for: pedal edema - Neurological Exam Neurological exam: Alert - Psychiatric Exam Psychiatric exam: Normal Affect, Normal Mood - Skin Skin Exam: Dry, Intact, Normal Color, Warm Results - Vital Signs Recent Vital Signs: Last Vital Signs Temp 98.4 F 05/03/17 10:05 Pulse 60 05/03/17 10:05 Resp 20 05/03/17 10:05 BP 162/72 H 05/03/17 10:05 Pulse Ox 96 05/03/17 10:05 - Labs Result Diagrams: 05/02/17 23:40 05/02/17 23:40 Labs: Laboratory Results - last 24 hr 05/02/17 05/02/17 05/02/17 23:40 23:40 23:53 WBC 17.5 H RBC 4.84 Hgb 15.3 Hct 45.2 MCV 93.5 MCH 31.7 H MCHC 33.9 RDW 13.3 Plt Count 262 MPV 10.0 Neut % (Auto) 90.2 H Lymph % (Auto) 6.1 L Gage % (Auto) 3.3 Eos % (Auto) 0.2 Baso % (Auto) 0.2 Neut # 15.7 H Lymph # 1.1 Gage # 0.6 Eos # 0.0 Baso # 0.0 Neutrophils % (Manual) 88 H Band Neutrophils % 2 Lymphocytes % (Manual) 5 L Reactive Lymphs % 3 H Monocytes % (Manual) 2 Platelet Estimate Normal Sodium 145 Potassium 3.6 Chloride 106 Carbon Dioxide 32 H Anion Gap 10 BUN 15 Creatinine 0.7 Est GFR ( Amer) > 60 Est GFR (Non-Af Amer) > 60 POC Glucose (mg/dL) Random Glucose 156 H Calcium 8.0 L Total Bilirubin 0.8 AST 263 H ALT 212 H Alkaline Phosphatase 139 H Total Protein 7.5 Albumin 4.3 Globulin 3.2 Albumin/Globulin Ratio 1.4 Triglycerides Cholesterol LDL Cholesterol Direct HDL Cholesterol Amylase Lipase Urine Color Yellow Urine Clarity Clear Urine pH 6.0 Ur Specific [place] 1.021 Urine Protein 1+ H Urine Glucose (UA) Normal Urine Ketones Negative Urine Blood Negative Urine Nitrate Negative Urine Bilirubin Negative Urine Urobilinogen 2.0 H Ur Leukocyte Esterase Neg Urine WBC (Auto) 3 Urine RBC (Auto) 5 H Ur Squamous Epith Cells 10 H Hepatitis A IgM Ab Hep Bs Antigen Hep B Core IgM Ab Hepatitis C Antibody 05/03/17 05/03/17 05/03/17 01:38 06:49 08:47 WBC RBC Hgb Hct MCV MCH MCHC RDW Plt Count MPV Neut % (Auto) Lymph % (Auto) Gage % (Auto) Eos % (Auto) Baso % (Auto) Neut # Lymph # Gage # Eos # Baso # Neutrophils % (Manual) Band Neutrophils % Lymphocytes % (Manual) Reactive Lymphs % Monocytes % (Manual) Platelet Estimate Sodium Potassium Chloride Carbon Dioxide Anion Gap BUN Creatinine Est GFR ( Amer) Est GFR (Non-Af Amer) POC Glucose (mg/dL) 151 H Random Glucose Calcium Total Bilirubin AST ALT Alkaline Phosphatase Total Protein Albumin Globulin Albumin/Globulin Ratio Triglycerides 61 Cholesterol 170 LDL Cholesterol Direct 120 HDL Cholesterol 44 Amylase 3706 H Lipase 85534 H Urine Color Urine Clarity Urine pH Ur Specific [place] Urine Protein Urine Glucose (UA) Urine Ketones Urine Blood Urine Nitrate Urine Bilirubin Urine Urobilinogen Ur Leukocyte Esterase Urine WBC (Auto) Urine RBC (Auto) Ur Squamous Epith Cells Hepatitis A IgM Ab Hep Bs Antigen Hep B Core IgM Ab Hepatitis C Antibody 05/03/17 08:47 WBC RBC Hgb Hct MCV MCH MCHC RDW Plt Count MPV Neut % (Auto) Lymph % (Auto) Gage % (Auto) Eos % (Auto) Baso % (Auto) Neut # Lymph # Gage # Eos # Baso # Neutrophils % (Manual) Band Neutrophils % Lymphocytes % (Manual) Reactive Lymphs % Monocytes % (Manual) Platelet Estimate Sodium Potassium Chloride Carbon Dioxide Anion Gap BUN Creatinine Est GFR ( Amer) Est GFR (Non-Af Amer) POC Glucose (mg/dL) Random Glucose Calcium Total Bilirubin AST ALT Alkaline Phosphatase Total Protein Albumin Globulin Albumin/Globulin Ratio Triglycerides Cholesterol LDL Cholesterol Direct HDL Cholesterol Amylase Lipase Urine Color Urine Clarity Urine pH Ur Specific [place] Urine Protein Urine Glucose (UA) Urine Ketones Urine Blood Urine Nitrate Urine Bilirubin Urine Urobilinogen Ur Leukocyte Esterase Urine WBC (Auto) Urine RBC (Auto) Ur Squamous Epith Cells Hepatitis A IgM Ab Negative Hep Bs Antigen Negative Hep B Core IgM Ab Negative Hepatitis C Antibody Negative Assessment & Plan - Assessment and Plan (Free Text) Assessment: 56 year old female with history of bowel resection (15 years ago) presenting with abdominal pain and vomiting. Active treatment of moderate gallstone pancreatitis with likely reactive inflammatory changes of colon notes on CT A/ P. No prior EGD or colonoscopy. Plan: >aggressive IVF hydration- LR 250cc/hr >NPO >pain control >pending MRCP >surgery managing -appreciate recommendations >Hepatitis panel negative >pending blood an urine cultures >supportive care: antiemetics, PPI >will require cholecystectomy to prevent recurrence of gallstone pancreatitis >close monitoring of clinical course <Giuseppe Terrazas - Last Filed: 05/03/17 11:04> Meds - Medications Medications: Current Medications Lactated Ringer's (Lactated Ringer's) 1,000 mls @ 250 mls/hr IV .Q4H [facility] Last Admin: 05/03/17 04:07 Dose: 250 mls/hr Ciprofloxacin (Cipro 400mg/200ml Dsw) 400 mg in 200 mls @ 133 mls/hr IVPB Q12H [facility] Last Admin: 05/03/17 04:20 Dose: 133 mls/hr Metronidazole (Flagyl) 500 mg in 100 mls @ 100 mls/hr IVPB Q8 [facility] Last Admin: 05/03/17 06:22 Dose: 100 mls/hr Morphine Sulfate (Morphine) 1 mg IVP Q4 PRN PRN Reason: Pain, moderate (4-7) Last Admin: 05/03/17 04:12 Dose: 1 mg Morphine Sulfate (Morphine) 2 mg IVP Q4 PRN PRN Reason: Pain, severe (8-10) Ondansetron HCl (Zofran Inj) 4 mg IVP Q6H PRN PRN Reason: Nausea/Vomiting Pantoprazole Sodium (Protonix Ec Tab) 40 mg PO DAILY [facility] Last Admin: 05/03/17 09:29 Dose: 40 mg Results - Vital Signs Recent Vital Signs: Last Vital Signs Temp 98.4 F 05/03/17 10:05 Pulse 60 05/03/17 10:05 Resp 20 05/03/17 10:05 BP 162/72 H 05/03/17 10:05 Pulse Ox 96 05/03/17 10:05 - Labs Result Diagrams: 05/02/17 23:40 05/02/17 23:40 Labs: Laboratory Results - last 24 hr 05/02/17 05/02/17 05/02/17 23:40 23:40 23:53 WBC 17.5 H RBC 4.84 Hgb 15.3 Hct 45.2 MCV 93.5 MCH 31.7 H MCHC 33.9 RDW 13.3 Plt Count 262 MPV 10.0 Neut % (Auto) 90.2 H Lymph % (Auto) 6.1 L Gage % (Auto) 3.3 Eos % (Auto) 0.2 Baso % (Auto) 0.2 Neut # 15.7 H Lymph # 1.1 Gage # 0.6 Eos # 0.0 Baso # 0.0 Neutrophils % (Manual) 88 H Band Neutrophils % 2 Lymphocytes % (Manual) 5 L Reactive Lymphs % 3 H Monocytes % (Manual) 2 Platelet Estimate Normal Sodium 145 Potassium 3.6 Chloride 106 Carbon Dioxide 32 H Anion Gap 10 BUN 15 Creatinine 0.7 Est GFR ( Amer) > 60 Est GFR (Non-Af Amer) > 60 POC Glucose (mg/dL) Random Glucose 156 H Calcium 8.0 L Total Bilirubin 0.8 AST 263 H ALT 212 H Alkaline Phosphatase 139 H Total Protein 7.5 Albumin 4.3 Globulin 3.2 Albumin/Globulin Ratio 1.4 Triglycerides Cholesterol LDL Cholesterol Direct HDL Cholesterol Amylase Lipase Urine Color Yellow Urine Clarity Clear Urine pH 6.0 Ur Specific [place] 1.021 Urine Protein 1+ H Urine Glucose (UA) Normal Urine Ketones Negative Urine Blood Negative Urine Nitrate Negative Urine Bilirubin Negative Urine Urobilinogen 2.0 H Ur Leukocyte Esterase Neg Urine WBC (Auto) 3 Urine RBC (Auto) 5 H Ur Squamous Epith Cells 10 H Hepatitis A IgM Ab Hep Bs Antigen Hep B Core IgM Ab Hepatitis C Antibody 05/03/17 05/03/17 05/03/17 01:38 06:49 08:47 WBC RBC Hgb Hct MCV MCH MCHC RDW Plt Count MPV Neut % (Auto) Lymph % (Auto) Gage % (Auto) Eos % (Auto) Baso % (Auto) Neut # Lymph # Gage # Eos # Baso # Neutrophils % (Manual) Band Neutrophils % Lymphocytes % (Manual) Reactive Lymphs % Monocytes % (Manual) Platelet Estimate Sodium Potassium Chloride Carbon Dioxide Anion Gap BUN Creatinine Est GFR ( Amer) Est GFR (Non-Af Amer) POC Glucose (mg/dL) 151 H Random Glucose Calcium Total Bilirubin AST ALT Alkaline Phosphatase Total Protein Albumin Globulin Albumin/Globulin Ratio Triglycerides 61 Cholesterol 170 LDL Cholesterol Direct 120 HDL Cholesterol 44 Amylase 3706 H Lipase 86593 H Urine Color Urine Clarity Urine pH Ur Specific [place] Urine Protein Urine Glucose (UA) Urine Ketones Urine Blood Urine Nitrate Urine Bilirubin Urine Urobilinogen Ur Leukocyte Esterase Urine WBC (Auto) Urine RBC (Auto) Ur Squamous Epith Cells Hepatitis A IgM Ab Hep Bs Antigen Hep B Core IgM Ab Hepatitis C Antibody 05/03/17 08:47 WBC RBC Hgb Hct MCV MCH MCHC RDW Plt Count MPV Neut % (Auto) Lymph % (Auto) Gage % (Auto) Eos % (Auto) Baso % (Auto) Neut # Lymph # Gage # Eos # Baso # Neutrophils % (Manual) Band Neutrophils % Lymphocytes % (Manual) Reactive Lymphs % Monocytes % (Manual) Platelet Estimate Sodium Potassium Chloride Carbon Dioxide Anion Gap BUN Creatinine Est GFR ( Amer) Est GFR (Non-Af Amer) POC Glucose (mg/dL) Random Glucose Calcium Total Bilirubin AST ALT Alkaline Phosphatase Total Protein Albumin Globulin Albumin/Globulin Ratio Triglycerides Cholesterol LDL Cholesterol Direct HDL Cholesterol Amylase Lipase Urine Color Urine Clarity Urine pH Ur Specific [place] Urine Protein Urine Glucose (UA) Urine Ketones Urine Blood Urine Nitrate Urine Bilirubin Urine Urobilinogen Ur Leukocyte Esterase Urine WBC (Auto) Urine RBC (Auto) Ur Squamous Epith Cells Hepatitis A IgM Ab Negative Hep Bs Antigen Negative Hep B Core IgM Ab Negative Hepatitis C Antibody Negative Attending/Attestation - Attestation I have personally seen and examined this patient.: Yes I have fully participated in the care of the patient.: Yes I have reviewed all pertinent clinical information: Yes Notes (Text): 05/03/17 11:02 56 year old female with h/o bowel resection (uncertain details), obesity admitted with gallstone pancreatitis. 1. Gallstone pancreatitis 2. Elevated lfts Plan: -recommend aggressive hydration with LR as above -bowel rest -check MRCP to eval for choledocholithiasis -US positive for gallstones -surgical eval for cholecystectomy -viral hepatitis serologies negative -no evidence of biliary obstruction/cholangitis
--- NOTE | 2017-05-03 10:31 | RAD ---
Abdomen three views History: Pain. Comparison: None available. Findings: Biapical pleural thickening. Mild venous congestion. Question mild pleural thickening at the lateral aspect of the right lung base. Heart size within normal limits. Tortuous aorta. Moderate fecal retention in the right hemicolon. Moderate fecal retention in the rectum. Few nondistended loops of small bowel seen in the upper abdomen. Question chronic deformity of the left proximal femur. Correlation with left hip x-rays may be helpful if clinically indicated. Impression: Nonspecific bowel gas pattern with relative paucity of small bowel gas loops. Moderate fecal retention in the right hemicolon and rectum.
[2017-05-04] MEDS: Ciprofloxacin 400mg/200ml D5W 400 MG/200 ML BAG IVPB SCH ×3 (03:16→14:06)
[2017-05-04] MEDS: Lactated Ringer's 1,000 ML IV SCH ×7 (03:17→22:54)
[2017-05-04] MEDS: metroNIDAZOLE IV 500 mg/100 ml 500 MG/100 ML BAG IVPB SCH ×3 (05:38→21:22)
[2017-05-04] MEDS ORDERED: HYDROmorphone 0.5 mg/0.5 ml ISec IVP PRN (06:46)
--- NOTE | 2017-05-04 06:59 | CP.PCM.PN ---
<Aurora Dominguez - Last Filed: 05/04/17 10:40> Subjective - Date & Time of Evaluation Date of Evaluation: 05/04/17 Time of Evaluation: 06:59 - Subjective Subjective: PGY2 GI Note for Dr. Warner Patient seen and examined at bedside. No acute events overnight as per nursing. Patient continues to have some abdominal pain and nausea but denies any vomiting. She has not had a BM for 2 days but has also had not had any PO intake. Denies fever, chills, chest pain, SOB, pain/swelling in her legs bilaterally. Objective - Vital Signs/Intake and Output Vital Signs (last 24 hours): Temp Pulse Resp BP Pulse Ox 99.1 F 63 20 147/80 96 05/04/17 00:31 05/04/17 00:31 05/04/17 00:31 05/04/17 00:31 05/04/17 00:31 Intake and Output: 05/03/17 05/04/17 18:59 06:59 Intake Total 450 4000 Balance 450 4000 - Medications Medications: Current Medications Docusate Sodium (Colace) [address] [facility] Last Admin: 05/03/17 17:25 Dose: 100 mg Heparin Sodium (Porcine) (Heparin) 5,[address] [facility] Last Admin: 05/04/17 05:39 Dose: 5,000 units Hydromorphone HCl (Dilaudid) 0.5 mg IVP Q4H PRN PRN Reason: Pain, moderate (4-7) Lactated Ringer's (Lactated Ringer's) 1,000 mls @ 250 mls/hr IV .Q4H [facility] Last Admin: 05/04/17 03:17 Dose: 250 mls/hr Ciprofloxacin (Cipro 400mg/200ml Dsw) 400 mg in 200 mls @ 133 mls/hr IVPB Q12H [facility] Last Admin: 05/04/17 03:16 Dose: 133 mls/hr Metronidazole (Flagyl) 500 mg in 100 mls @ 100 mls/hr IVPB Q8 [facility] Last Admin: 05/04/17 05:38 Dose: 100 mls/hr Ondansetron HCl (Zofran Inj) 4 mg IVP Q6H PRN PRN Reason: Nausea/Vomiting Pantoprazole Sodium (Protonix Ec Tab) [address] [facility] Last Admin: 05/03/17 09:29 Dose: 40 mg - Labs Labs: 05/02/17 23:40 05/02/17 23:40 - Constitutional Appears: Non-toxic, No Acute Distress - Head Exam Head Exam: ATRAUMATIC, NORMOCEPHALIC - Eye Exam Eye Exam: EOMI, PERRL. absent: Scleral icterus - ENT Exam ENT Exam: Mucous Membranes Moist - Neck Exam Neck Exam: Full ROM, Normal Inspection - Respiratory Exam Respiratory Exam: Clear to Ausculation Bilateral, NORMAL BREATHING PATTERN. absent: Accessory Muscle Use, Rales, Rhonchi, Wheezes, Respiratory Distress - Cardiovascular Exam Cardiovascular Exam: REGULAR RHYTHM, RRR, +S1, +S2. absent: Murmur - GI/Abdominal Exam GI & Abdominal Exam: Soft, Tenderness (diffuse to palpation), Normal Bowel Sounds. absent: Firm, Rigid - Extremities Exam Extremities Exam: Normal Capillary Refill, Normal Inspection. absent: Pedal Edema - Neurological Exam Neurological Exam: Alert, Awake, Oriented x3 - Psychiatric Exam Psychiatric exam: Normal Affect, Normal Mood - Skin Skin Exam: Dry, Intact, Normal Color Assessment and Plan - Assessment and Plan (Free Text) Assessment: 56yo female PMHx bowel resection (15 years ago) presenting with abdominal pain and vomiting. GI consulted for gallstone pancreatitis Plan: - keep NPO - f/u MRCP read - Abd u/s: partially distended gallbaldder with multiple gallstones and 4mm gallbladder wall thickening and minimal pericholecystic fluid. Prominent CBD measuring 7mm - CT abd/pelvis: pancreatitis with inflammatory changes in gastric antrum, duodenum, and jejunum and free fluid; fecalized ileal loops in pelvis suggest partial obstruction; enteritis vs enterocolitis - Abd x-ray: nonspecific bowel gas pattern with relative paucity of small bowel gas loops; moderate fecal retention in R hemicolon and rectum - aggressive IVF hydration- LR 250cc/hr - Cipro 400mg ivpb q12 and Flagyl 500mg ivpb q8 Day 2 - pain control and supportive care with antiemetics and PPI - Hep panel negative - blood culture prelim negative - urine cultures pending - surgery on board- plan for lap yared prior to discharge when pain resolves Discussed with Dr. Alana Dominguez PGY2 <Laverne Warner MD - Last Filed: 05/04/17 17:17> Objective - Vital Signs/Intake and Output Vital Signs (last 24 hours): Temp Pulse Resp BP Pulse Ox 98.6 F 73 20 148/81 95 05/04/17 15:33 05/04/17 15:33 05/04/17 15:33 05/04/17 15:33 05/04/17 15:33 Intake and Output: 05/04/17 05/04/17 06:59 18:59 Intake Total 4000 0 Balance 4000 0 - Medications Medications: Current Medications Docusate Sodium (Colace) [address] [facility] Last Admin: 05/04/17 13:03 Dose: Not Given Heparin Sodium (Porcine) (Heparin) 5,[address] [facility] Last Admin: 05/04/17 13:04 Dose: 5,000 units Hydromorphone HCl (Dilaudid) 0.5 mg IVP Q4H PRN PRN Reason: Pain, moderate (4-7) Lactated Ringer's (Lactated Ringer's) 1,000 mls @ 250 mls/hr IV .Q4H [facility] Last Admin: 05/04/17 13:46 Dose: Not Given Ciprofloxacin (Cipro 400mg/200ml Dsw) 400 mg in 200 mls @ 133 mls/hr IVPB Q12H [facility] Last Admin: 05/04/17 14:06 Dose: Not Given Metronidazole (Flagyl) 500 mg in 100 mls @ 100 mls/hr IVPB Q8 [facility] Last Admin: 05/04/17 13:58 Dose: 100 mls/hr Ondansetron HCl (Zofran Inj) 4 mg IVP Q6H PRN PRN Reason: Nausea/Vomiting Pantoprazole Sodium (Protonix Inj) [address] [facility] - Labs Labs: 05/04/17 07:34 05/04/17 07:34 Attending/Attestation - Attestation I have personally seen and examined this patient.: Yes I have fully participated in the care of the patient.: Yes I have reviewed all pertinent clinical information, including history, physical exam and plan: Yes Notes (Text): 05/04/17 17:10 This is a 56 yr old female PMHx with bowel resection (15 years ago) presenting with abdominal pain and vomiting in setting of gallstone pancreatitis. MRCP unremarkable for choledocholithiasis. Sonogram compatible with partially distended GB with gallstones and GB wall thickening with CT showing peripancreatic inflammation. Continue IVF and NPO and surgical evaluation for CCY. Hepatitis panel negative. Will sign off now. Thank you for letting us participate in the care of your patient
[2017-05-04 07:50] LABS: HEMATOCRIT 43.1 % (34.0-47.0); MEAN CELL VOLUME 93.2 fL (81.0-99.0); MEAN CORPUSCULAR HEMOGLOBIN 31.2 pg (27.0-31.0); MEAN CORPUSCULAR HGB CONC 33.5 g/dL (33.0-37.0); MEAN PLATELET VOLUME 10.4 fL (7.2-11.7); RED CELL DISTRIBUTION WIDTH 13.4 % (11.5-14.5); WHITE BLOOD COUNT 19.5 K/uL (4.8-10.8)
[2017-05-04 08:06] LABS: MAGNESIUM 1.5 mg/dL (1.6-2.3); PHOSPHOROUS 3.2 mg/dL (2.5-4.5)
[2017-05-04 08:28] LABS: ALB/GLOB RATIO 1.3 (1.0-2.1); ALKALINE PHOSPHATASE 91 U/L (38-126); ALT/SGPT 95 U/L (9-52); AST/SGOT 33 U/L (14-36); BLOOD UREA NITROGEN 9 mg/dL (7-17); CALCIUM 7.3 mg/dl (8.6-10.4); CARBON DIOXIDE 27 mmol/L (22-30); CHLORIDE 103 mmol/L (98-107); GFR AFRICAN-AMERICAN > 60; GLUCOSE,RANDOM 99 mg/dL (65-105); POTASSIUM 3.1 mmol/L (3.6-5.2); SODIUM 138 mmol/L (132-148); TOTAL PROTEIN 5.9 g/dL (6.3-8.3)
[2017-05-04] MEDS ORDERED: Magnesium Sulfate 1 gm in D5W 1 GM/100 ML BAG IVPB ONE (09:14)
[2017-05-04] MEDS ORDERED: Potassium Chloride 20 mEq ER Tab PO ONE (09:15)
--- NOTE | 2017-05-04 09:26 | CP.PCM.PN ---
Subjective - Date & Time of Evaluation Date of Evaluation: 05/04/17 Time of Evaluation: 09:26 - Subjective Subjective: General Surgery: Dr Headley Pt S&E. Reports still with intense abdominal pain, epigastric. Complains feeling nauseous. Pt states she was given a different pain medicine last night and it worsened her abdominal pain and reportedly made her more nauseous. She denies any emesis, fevers, chills, sob or chest pain. Explained to pt nature of her problem as well as need for further imaging. Pt understands we will plan for surgery prior to discharge. Objective - Vital Signs/Intake and Output Vital Signs (last 24 hours): Temp Pulse Resp BP Pulse Ox 98.6 F 68 20 113/68 96 05/04/17 07:34 05/04/17 07:34 05/04/17 07:34 05/04/17 07:34 05/04/17 07:34 Intake and Output: 05/04/17 05/04/17 06:59 18:59 Intake Total 4000 Balance 4000 - Medications Medications: Current Medications Docusate Sodium (Colace) 100 mg PO TID [facility] Last Admin: 05/03/17 17:25 Dose: 100 mg Heparin Sodium (Porcine) (Heparin) 5,000 units SC Q8 [facility] Last Admin: 05/04/17 05:39 Dose: 5,000 units Hydromorphone HCl (Dilaudid) 0.5 mg IVP Q4H PRN PRN Reason: Pain, moderate (4-7) Lactated Ringer's (Lactated Ringer's) 1,000 mls @ 250 mls/hr IV .Q4H [facility] Last Admin: 05/04/17 03:17 Dose: 250 mls/hr Ciprofloxacin (Cipro 400mg/200ml Dsw) 400 mg in 200 mls @ 133 mls/hr IVPB Q12H [facility] Last Admin: 05/04/17 03:16 Dose: 133 mls/hr Metronidazole (Flagyl) 500 mg in 100 mls @ 100 mls/hr IVPB Q8 [facility] Last Admin: 05/04/17 05:38 Dose: 100 mls/hr Magnesium Sulfate/Dextrose (Magnesium Sulfate 1 Gm/100 Ml D5w) 1 gm in 100 mls @ 200 mls/hr IVPB ONCE ONE Stop: 05/04/17 09:43 Potassium Chloride (Potassium Chloride 20 Meq/100 Ml) 20 meq in 100 mls @ 50 mls/hr IVPB ONCE ONE Stop: 05/04/17 11:13 Ondansetron HCl (Zofran Inj) 4 mg IVP Q6H PRN PRN Reason: Nausea/Vomiting Pantoprazole Sodium (Protonix Ec Tab) 40 mg PO DAILY [facility] Last Admin: 05/03/17 09:29 Dose: 40 mg - Labs Labs: 05/04/17 07:34 05/04/17 07:34 - Constitutional Appears: Non-toxic, No Acute Distress - Eye Exam Eye Exam: Normal appearance - ENT Exam ENT Exam: Mucous Membranes Moist - Respiratory Exam Respiratory Exam: absent: Accessory Muscle Use, Respiratory Distress - Cardiovascular Exam Cardiovascular Exam: REGULAR RHYTHM. absent: Tachycardia - GI/Abdominal Exam GI & Abdominal Exam: Guarding (voluntary), Soft, Tenderness (epigastric). absent: Distended, Firm, Rigid Assessment and Plan - Assessment and Plan (Free Text) Assessment: 56F with presumably gallstone pancreatitis Plan: f/u MRCP will plan for lap yared later in the week once pain resolves unnecessary to trend lipase from a surgical standpoint cont aggressive IV hydration d/w Dr Fang Patton, PGY3
[2017-05-04] MEDS ORDERED: Gadodiamide 287 MG/ML VIAL (15ML) IV ONE (09:52)
[2017-05-04] MEDS: Pantoprazole 40 mg EC Tab PO SCH (11:19)
--- NOTE | 2017-05-04 12:31 | CP.PCM.PN ---
<Anat Yu V - Last Filed: 05/04/17 16:17> Objective - Vital Signs/Intake and Output Vital Signs (last 24 hours): Temp Pulse Resp BP Pulse Ox 98.6 F 73 20 148/81 95 05/04/17 15:33 05/04/17 15:33 05/04/17 15:33 05/04/17 15:33 05/04/17 15:33 Intake and Output: 05/04/17 05/04/17 06:59 18:59 Intake Total 4000 0 Balance 4000 0 - Medications Medications: Current Medications Docusate Sodium (Colace) 100 mg PO TID [facility] Last Admin: 05/04/17 13:03 Dose: Not Given Heparin Sodium (Porcine) (Heparin) 5,000 units SC Q8 [facility] Last Admin: 05/04/17 13:04 Dose: 5,000 units Hydromorphone HCl (Dilaudid) 0.5 mg IVP Q4H PRN PRN Reason: Pain, moderate (4-7) Lactated Ringer's (Lactated Ringer's) 1,000 mls @ 250 mls/hr IV .Q4H [facility] Last Admin: 05/04/17 13:46 Dose: Not Given Ciprofloxacin (Cipro 400mg/200ml Dsw) 400 mg in 200 mls @ 133 mls/hr IVPB Q12H [facility] Last Admin: 05/04/17 14:06 Dose: Not Given Metronidazole (Flagyl) 500 mg in 100 mls @ 100 mls/hr IVPB Q8 [facility] Last Admin: 05/04/17 13:58 Dose: 100 mls/hr Ondansetron HCl (Zofran Inj) 4 mg IVP Q6H PRN PRN Reason: Nausea/Vomiting Pantoprazole Sodium (Protonix Inj) 40 mg IVP DAILY [facility] - Labs Labs: 05/04/17 07:34 05/04/17 07:34 Attending/Attestation - Attestation I have personally seen and examined this patient.: Yes I have fully participated in the care of the patient.: Yes I have reviewed all pertinent clinical information, including history, physical exam and plan: Yes Notes (Text): Patient seen, examined, and case discussed with day-time resident. Patient seen this morning with her two children at bedside. patient reports abdominal pain, diffused, 8/10, denies nausea, denies vomitting, has not had any flatus or bowel movement since Thursday, denies fever, denies chills, denies chest pain, denies palpitations. Patient completed MRCP today, which showed no pancreatic mass. Findings consistent with acute pancreatitis. Findings concerning for cholecystitis. No evidence of biliary obstruction. Additional minor findings above. Common bile duct normal in caliber, measuring 6mm. No evidence of choledocholithasis, 6mm CBD. This is in contrast to 7mm seen in Abdominal US. Will need to f/u with GI to see if ERCP is warranted and general surgery for gallbladder. Assessments: 1). Acute Pancreatitis * Ransons Criteria: 3 (Age, WBC, And AST) * Transferred to telemetry given [place]'s Criteria 05/04 * GI: Dr. Luna-->help appreciated * General surgery: Dr. Headley-->help appreciated * LR 250cc/hr (since 05/03/17) * MRCP (05/04): no pancreatic mass. Findings consistent with acute pancreatitis. Findings concerning for cholecystitis. No evidence of biliary obstruction. Additional minor findings above. Common bile duct normal in caliber , measuring 6mm. No evidence of choledocholithasis * Abdominal US (05/03/17): partially distended gallbladder with multiple gallstones and 4mm gallbladder wall thickening. and minimal pericholecystic fluid. Right upper quadrant tenderingers. Prominent common bile duct measuring 7mm. * CT abdomen/pelvis (05/03/17): pancreatitis with inflammatory change in gastric antrum, duodenum and jejenum and free fluid. fecalized ileal loops in the pelvis suggest partial obstruction, enteritis versus enterocolitis. * Lipid panel: within normal 2). Partial Small Bowel Obstruction * She is not vomiting today * General surgery: Dr. Headley-->help appreciated * Obstruction Series (05/02) shows fecal retention in the right colon and rectum with nonspecific small bowel gas pattern * will need to monitor for flatus and bowel movement, reports has not had BM since Thursday 3). Cholecystitis * General surgery: Dr. Headley-->help appreciated * LR 250cc/hr (since 05/03/17) * MRCP (05/04): no pancreatic mass. Findings consistent with acute pancreatitis. Findings concerning for cholecystitis. No evidence of biliary obstruction. Additional minor findings above. Common bile duct normal in caliber , measuring 6mm. No evidence of choledocholithasis * Abdominal US (05/03/17): partially distended gallbladder with multiple gallstones and 4mm gallbladder wall thickening. and minimal pericholecystic fluid. Right upper quadrant tenderingers. Prominent common bile duct measuring 7mm. * CT abdomen/pelvis (05/03/17): pancreatitis with inflammatory change in gastric antrum, duodenum and jejenum and free fluid. fecalized ileal loops in the pelvis suggest partial obstruction, enteritis versus enterocolitis. * Ciprofloxacin 400mg IV Q12H (active since 05/03/17) and Flagyl 500mg IVQ8H ( active since 05/03/17) 4). Elevated LFTs * Likely secondary to the Cholecystitis, Pancreatitis * Abnormal Liver anatomy per report of MRCP, per recommended for followup CT in 306 months * Hepatitis panel normal * ALT downtrending; AST normalized 5). Leukocytosis * Contributing: Cholecystitis, Gallstone Pancreatitis, Enteritis/Entercolitis * Ciprofloxaxin 400 mg IV Q12H and Metronidazole 500 mg IV Q8H (active since ) * F/U Blood Culture (05/03/17): no growth after 24 hours X2 * F/U Urine Culture pending collected on 05/03 6) Electrolyte Imbalances * Replete potassium and magnesium; will need to follow-up BMP and Mg2+ tonight 7) Impaired glucose tolerance * patient is not diabetic; a1c: 5.9 * Will need follow-up a1c in one year to prevent overt diabetes. 8). Prophylaxis * Dilaudid 0.5mg IVPQ 4H pain moderate PRN * Protonix 40 mg IV 1x/day * Heparin 5,000 units SC Q8H and Bilateral SCDs * Colace 100 mg PO TID * Zofran 4 mg IV Q6h PRN N/V Disposition: Patient completed MRCP today. Will need to GI to see if ERCP is warranted and follow-up with surgery. Monitor for flatus and bowel movement. Transferred to telemetry for further monitoring given increased mortality associated with Day's score of 3. <Cruz Hooker - Last Filed: 05/04/17 17:25> Subjective - Date & Time of Evaluation Date of Evaluation: 05/04/17 Time of Evaluation: 08:10 - Subjective Subjective: Medicine progress note for Dr. Yu Patient seen and examined at bedside. Patient reports continued diffuse abdominal pain rated at 8/10. Patient denies nausea and vomiting at this time. Patient has no other acute complaints including fever, chills, chest pain, dyspnea, dysuria. Last bowel movement was 2 days prior. Objective - Vital Signs/Intake and Output Vital Signs (last 24 hours): Temp Pulse Resp BP Pulse Ox 98.6 F 68 20 113/68 96 05/04/17 07:34 05/04/17 07:34 05/04/17 07:34 05/04/17 07:34 05/04/17 07:34 Intake and Output: 05/04/17 05/04/17 06:59 18:59 Intake Total 4000 Balance 4000 - Medications Medications: Current Medications Docusate Sodium (Colace) 100 mg PO TID [facility] Last Admin: 05/04/17 11:18 Dose: Not Given Heparin Sodium (Porcine) (Heparin) 5,000 units SC Q8 [facility] Last Admin: 05/04/17 05:39 Dose: 5,000 units Hydromorphone HCl (Dilaudid) 0.5 mg IVP Q4H PRN PRN Reason: Pain, moderate (4-7) Lactated Ringer's (Lactated Ringer's) 1,000 mls @ 250 mls/hr IV .Q4H [facility] Last Admin: 05/04/17 10:27 Dose: 250 mls/hr Ciprofloxacin (Cipro 400mg/200ml Dsw) 400 mg in 200 mls @ 133 mls/hr IVPB Q12H [facility] Last Admin: 05/04/17 03:16 Dose: 133 mls/hr Metronidazole (Flagyl) 500 mg in 100 mls @ 100 mls/hr IVPB Q8 [facility] Last Admin: 05/04/17 05:38 Dose: 100 mls/hr Ondansetron HCl (Zofran Inj) 4 mg IVP Q6H PRN PRN Reason: Nausea/Vomiting - Labs Labs: 05/04/17 07:34 05/04/17 07:34 - Constitutional Appears: No Acute Distress - Head Exam Head Exam: ATRAUMATIC, NORMOCEPHALIC - Eye Exam Eye Exam: EOMI, PERRL - ENT Exam ENT Exam: Mucous Membranes Moist - Respiratory Exam Respiratory Exam: Clear to Ausculation Bilateral. absent: Rales, Rhonchi, Wheezes - Cardiovascular Exam Cardiovascular Exam: REGULAR RHYTHM, +S1, +S2. absent: Murmur - GI/Abdominal Exam GI & Abdominal Exam: Soft, Tenderness (diffuse but primarily epigastric), Normal Bowel Sounds. absent: Guarding, Rigid - Extremities Exam Extremities Exam: absent: Pedal Edema, Tenderness - Neurological Exam Neurological Exam: Alert, Awake, Oriented x3 - Psychiatric Exam Psychiatric exam: Normal Affect, Normal Mood - Skin Skin Exam: Dry, Intact, Normal Color, Warm Assessment and Plan - Assessment and Plan (Free Text) Plan: Pancreatitis Surgery consult, Dr. Headley----> Help appreciated * Management as per recommendation On admission: Lipase 87540 Amylase 3706 05/02 AST/ALT:263/212 Imaging: CT Abdomen/Pelvis: Pancreatitis with inflammatory change in the gastric antrum, duodenum and jejunum and free fluid; fecalized ileal loops in the pelvis suggest partial obstruction; enteritis versus enterocolitis. Gallbladder is partially distended. Common duct is prominent. There is fluid in the left colic gutter. There is pericholecystic fluid. Pancreas is diffusely enlarged. There is pancreatic and peripancreatic edema. MRCP: Findings consistent with cholecystitis. No evidence of choledocholithiasis. CBD measuring 6 mm. Medications/Management: NPO LR @ 250 mls/hr Dilaudid 0.4 mg IV Q4 prn pain Cipro 400mg IV Q12H (Started 05/03) Flagyl 500mg IV Q8H (Started 05/03) Labs: * 05/03 Lipid panel: Trigylcerides 61, Cholesterol 170, LDL 120, HDL 44 * Lipase 2352 on 05/04 Partial small bowel obstruction CT Abdomen/Pelvis: fecalized ileal loops in the pelvis suggest partial obstruction Surgery consult, Dr. Headley----> Help appreciated * Management as per recommendation Management: * NPO and fluid hydration Leukocytosis On admission: WBC: 17.5, no bandemia On 05/04: WBC increased to 19.5 Day's criteria of 3--transfer to telemetry for monitoring due to increased risk of mortality Elevated liver enzymes Surgery consult, Dr. Headley----> Help appreciated * Management as per recommendation On admission: 05/02 AST/ALT:263/212 LFTs downtrending Imaging: CT Abdomen/Pelvis: Gallbladder is partially distended. Common duct is prominent. There is fluid in the left colic gutter. There is pericholecystic fluid. Elevated random blood glucose level On admission: * 156 HgbA1C 5.9 Accuchecks Q8H Prophylaxis GI: Protonix 40mg IV daily DVT: SCDs, Heparin 5000 units SC Q8 Patient with low potassium magnesium. Replenished. Repeat BMP and Magnesium to assess for the need to replenish further. Case DW Dr. Aimee Hooker PGY-1
--- NOTE | 2017-05-04 12:42 | MRI ---
PROCEDURE: MRI Abdomen with and without contrast and MRCP HISTORY: Pancreatitis. Cholecystitis. Dilated CBD. COMPARISON: CT abdomen/ pelvis 05/03/2017. Ultrasound abdomen 05/03/2017.. TECHNIQUE: Multisequence, multiplanar MR images of the abdomen with and without gadolinium contrast enhancement. Thick slab MRCP images were acquired and displayed in multiple radial projections. FINDINGS: LIVER: Normal size, contour and signal intensity. There is no mass. There is a tongue of tissue along left lateral aspect of the gallbladder which is isointense to liver on all sequences. This is an atypical appearance of the hepatic anatomy but likely represents normal liver tissue. Nevertheless, followup with contrast-enhanced CT examination is advised in 3-6 months. No intrahepatic biliary dilatation. GALLBLADDER: Diffusely thickened. Trace pericholecystic fluid. Cholelithiasis. Findings are concerning for cholecystitis. Common bile duct normal in caliber, measuring 6 mm. No evidence of choledocholithiasis. SPLEEN: Normal size, contour and signal intensity. No focal mass. PANCREAS: No mass. Mild enlargement. Peripancreatic fluid consistent with acute pancreatitis. This is seen predominantly about the body and tail of the pancreas, sparing the head. No pancreatic ductal dilatation. ADRENALS: Unremarkable. KIDNEYS: Small fluid signal masses in left kidney, likely cysts, 7 mm and 9 mm in respective diameter. No hydronephrosis. AORTA: No aneurysm. ASCITES: Minimal ascites. There is fluid seen bilaterally in the inferior posterior para renal space. PERITONEUM: Otherwise unremarkable LYMPH NODES: Unremarkable. OTHER FINDINGS: None. IMPRESSION: No pancreatic mass. Findings consistent with acute pancreatitis. Findings concerning for cholecystitis. No evidence of biliary obstruction. Additional minor findings as above.
[2017-05-04 20:14] LABS: BLOOD UREA NITROGEN 8 mg/dL (7-17); CALCIUM 7.3 mg/dl (8.6-10.4); CARBON DIOXIDE 30 mmol/L (22-30); CHLORIDE 102 mmol/L (98-107); GFR AFRICAN-AMERICAN > 60; GLUCOSE,RANDOM 99 mg/dL (65-105); MAGNESIUM 1.7 mg/dL (1.6-2.3); POTASSIUM 3.5 mmol/L (3.6-5.2); SODIUM 135 mmol/L (132-148)
[2017-05-05] MEDS: Lactated Ringer's 1,000 ML IV SCH ×2 (03:21→08:12)
[2017-05-05] MEDS: Ciprofloxacin 400mg/200ml D5W 400 MG/200 ML BAG IVPB SCH ×2 (03:34→15:47)
[2017-05-05] MEDS: metroNIDAZOLE IV 500 mg/100 ml 500 MG/100 ML BAG IVPB SCH ×2 (05:58→14:27)
--- NOTE | 2017-05-05 07:07 | CP.PCM.PN ---
<Kyrie Hookera Reji - Last Filed: 05/05/17 17:03> Subjective - Date & Time of Evaluation Date of Evaluation: 05/05/17 Time of Evaluation: 07:00 - Subjective Subjective: Medicine progress note for Dr. Yu Patient seen and examined at bedside. Patient reports improving abdominal pain rated at 6-7/10 today. Patient has not passed flatus but is belching frequently. Patient has no difficulty with urination. Patient denies fever, chills, chest pain, dyspnea, abdominal pain, dysuria. Objective - Vital Signs/Intake and Output Vital Signs (last 24 hours): Temp Pulse Resp BP Pulse Ox 97.8 F 81 20 140/75 95 05/04/17 23:40 05/05/17 04:16 05/04/17 23:40 05/04/17 23:40 05/04/17 23:40 Intake and Output: 05/05/17 05/05/17 06:59 18:59 Intake Total 2750 Output Total 0 Balance 2750 - Medications Medications: Current Medications Docusate Sodium (Colace) 100 mg PO TID [facility] Last Admin: 05/04/17 17:22 Dose: Not Given Heparin Sodium (Porcine) (Heparin) 5,000 units SC Q8 [facility] Last Admin: 05/05/17 05:58 Dose: 5,000 units Hydromorphone HCl (Dilaudid) 0.5 mg IVP Q4H PRN PRN Reason: Pain, moderate (4-7) Lactated Ringer's (Lactated Ringer's) 1,000 mls @ 250 mls/hr IV .Q4H [facility] Last Admin: 05/05/17 03:21 Dose: Not Given Ciprofloxacin (Cipro 400mg/200ml Dsw) 400 mg in 200 mls @ 133 mls/hr IVPB Q12H [facility] Last Admin: 05/05/17 03:34 Dose: 133 mls/hr Metronidazole (Flagyl) 500 mg in 100 mls @ 100 mls/hr IVPB Q8 [facility] Last Admin: 05/05/17 05:58 Dose: 100 mls/hr Ondansetron HCl (Zofran Inj) 4 mg IVP Q6H PRN PRN Reason: Nausea/Vomiting Pantoprazole Sodium (Protonix Inj) 40 mg IVP DAILY [facility] - Labs Labs: 05/04/17 07:34 05/04/17 19:49 - Constitutional Appears: No Acute Distress - Head Exam Head Exam: ATRAUMATIC, NORMOCEPHALIC - Eye Exam Eye Exam: EOMI, PERRL - ENT Exam ENT Exam: Mucous Membranes Moist - Respiratory Exam Respiratory Exam: Clear to Ausculation Bilateral. absent: Rales, Rhonchi, Wheezes - Cardiovascular Exam Cardiovascular Exam: REGULAR RHYTHM, +S1, +S2 - GI/Abdominal Exam GI & Abdominal Exam: Soft, Tenderness (diffuse but primarily epigastric), Normal Bowel Sounds. absent: Guarding, Rigid - Extremities Exam Extremities Exam: absent: Pedal Edema, Tenderness - Neurological Exam Neurological Exam: Alert, Awake, Oriented x3 - Psychiatric Exam Psychiatric exam: Normal Affect, Normal Mood - Skin Skin Exam: Dry, Intact, Normal Color, Warm Assessment and Plan - Assessment and Plan (Free Text) Plan: Pancreatitis Surgery consult, Dr. Headley----> Help appreciated * Management as per recommendation On admission: Lipase 23516 Amylase 3706 05/02 AST/ALT:263/212 Imaging: CT Abdomen/Pelvis: Pancreatitis with inflammatory change in the gastric antrum, duodenum and jejunum and free fluid; fecalized ileal loops in the pelvis suggest partial obstruction; enteritis versus enterocolitis. Gallbladder is partially distended. Common duct is prominent. There is fluid in the left colic gutter. There is pericholecystic fluid. Pancreas is diffusely enlarged. There is pancreatic and peripancreatic edema. MRCP: Findings consistent with cholecystitis. No evidence of choledocholithiasis. CBD measuring 6 mm. Medications/Management: NPO LR @ 250 mls/hr Dilaudid 0.4 mg IV Q4 prn pain Cipro 400mg IV Q12H (Started 05/03 and D/C'ed on 05/05) Flagyl 500mg IV Q8H (Started 05/03 and D/C'ed on 05/05) Primaxin 500 mg IV Q6H (started on 05/05) Labs: * 05/03 Lipid panel: Trigylcerides 61, Cholesterol 170, LDL 120, HDL 44 * Lipase 2352 on 05/04 Plan for Laparascopic cholecystectomy tomorrow morning. EKG and coags were ordered in anticipation. Partial small bowel obstruction CT Abdomen/Pelvis: fecalized ileal loops in the pelvis suggest partial obstruction Surgery consult, Dr. Headley----> Help appreciated * Management as per recommendation Management: * NPO and fluid hydration Leukocytosis On admission: WBC: 17.5, no bandemia On 05/04: WBC increased to 19.5 [place]'s criteria of 3--transfer to telemetry for monitoring due to increased risk of mortality ID Dr. Cheung consulted, help appreciated Per Dr. Cheung's recommendations, Cipro and Flagyl were D/C'ed on 05/05/17 and Primaxin 500 mg Q6H was started in place Elevated liver enzymes Surgery consult, Dr. Headley----> Help appreciated * Management as per recommendation On admission: 05/02 AST/ALT:263/212 LFTs downtrending Imaging: CT Abdomen/Pelvis: Gallbladder is partially distended. Common duct is prominent. There is fluid in the left colic gutter. There is pericholecystic fluid. Elevated random blood glucose level On admission: * 156 HgbA1C 5.9 Accuchecks Q8H Prophylaxis GI: Protonix 40mg IV daily DVT: SCDs, Heparin 5000 units SC Q8 Case DW Dr. Aimee Hooker PGY-1 <Anat Yu V - Last Filed: 05/05/17 20:26> Objective - Vital Signs/Intake and Output Vital Signs (last 24 hours): Temp Pulse Resp BP Pulse Ox 99.7 F H 77 20 161/90 H 94 L 05/05/17 16:00 05/05/17 16:00 05/05/17 16:00 05/05/17 16:00 05/05/17 16:00 - Medications Medications: Current Medications Docusate Sodium (Colace) 100 mg PO TID [facility] Last Admin: 05/05/17 14:27 Dose: Not Given Heparin Sodium (Porcine) (Heparin) 5,000 units SC Q8 [facility] Last Admin: 05/05/17 14:26 Dose: 5,000 units Hydromorphone HCl (Dilaudid) 0.5 mg IVP Q4H PRN PRN Reason: Pain, moderate (4-7) Sodium Chloride (Sodium Chloride 0.9%) 1,000 mls @ 250 mls/hr IV .Q4H [facility] Last Admin: 05/05/17 13:27 Dose: Not Given Imipenem/Cilastatin Sodium 500 (mg/ Dextrose) 250 mls @ 100 mls/hr IVPB Q6H [facility] Ondansetron HCl (Zofran Inj) 4 mg IVP Q6H PRN PRN Reason: Nausea/Vomiting Pantoprazole Sodium (Protonix Inj) 40 mg IVP DAILY [facility] Last Admin: 05/05/17 11:12 Dose: 40 mg - Labs Labs: 05/05/17 08:17 05/05/17 08:17 Attending/Attestation - Attestation I have personally seen and examined this patient.: Yes I have fully participated in the care of the patient.: Yes I have reviewed all pertinent clinical information, including history, physical exam and plan: Yes Notes (Text): Patient seen, examined, and case discussed with day-time resident. Patient seen this morning with her two children at bedside. patient reports abdominal pain, diffused, 6-11/24, denies nausea, denies vomitting, has not had any flatus or bowel movement since Thursday, denies fever, denies chills, denies chest pain, denies palpitations. Patient reports belching and burping. Patient reports she is urinating. Patient reports she was seen by surgery resident, who scheduled patient for surgery tomorrow. EKG ordered by surgery team; appears to be normal sinus rhythm HR: 73s. ordered for chest xray portable. Infectious Disease consulted given increasing leukocytosis and increase gram negative coverage with IV abx in light of cholecystitis. Patient recommended for Primaxin given there is shortage for Meropenem. Assessments: 1). Acute Pancreatitis * Ransons Criteria: 3 (Age, WBC, And AST) * Transferred to telemetry given Day's Criteria 05/04 * GI: Dr. Luna-->help appreciated-->signed off 05/04 * General surgery: Dr. Headley-->help appreciated * Lap yared tentative date 05/06 * LR 250cc/hr (since 05/03/17) * MRCP (05/04): no pancreatic mass. Findings consistent with acute pancreatitis. Findings concerning for cholecystitis. No evidence of biliary obstruction. Additional minor findings above. Common bile duct normal in caliber , measuring 6mm. No evidence of choledocholithasis * Abdominal US (05/03/17): partially distended gallbladder with multiple gallstones and 4mm gallbladder wall thickening. and minimal pericholecystic fluid. Right upper quadrant tenderingers. Prominent common bile duct measuring 7mm. * CT abdomen/pelvis (05/03/17): pancreatitis with inflammatory change in gastric antrum, duodenum and jejenum and free fluid. fecalized ileal loops in the pelvis suggest partial obstruction, enteritis versus enterocolitis. * Lipid panel: within normal 2). Partial Small Bowel Obstruction * She is not vomiting today. Patient reports burping/belching. * General surgery: Dr. Headley-->help appreciated * Obstruction Series (05/02) shows fecal retention in the right colon and rectum with nonspecific small bowel gas pattern * will need to monitor for flatus and bowel movement, reports has not had BM since Thursday 3). Cholecystitis * General surgery: Dr. Headley-->help appreciated * OR tomorrow 05/06 * LR 250cc/hr (since 05/03/17) * MRCP (05/04): no pancreatic mass. Findings consistent with acute pancreatitis. Findings concerning for cholecystitis. No evidence of biliary obstruction. Additional minor findings above. Common bile duct normal in caliber , measuring 6mm. No evidence of choledocholithasis * Abdominal US (05/03/17): partially distended gallbladder with multiple gallstones and 4mm gallbladder wall thickening. and minimal pericholecystic fluid. Right upper quadrant tenderingers. Prominent common bile duct measuring 7mm. * CT abdomen/pelvis (05/03/17): pancreatitis with inflammatory change in gastric antrum, duodenum and jejenum and free fluid. fecalized ileal loops in the pelvis suggest partial obstruction, enteritis versus enterocolitis. * Infectious Disease (Dr. Cheung)-->help appreciated * Recommendation to switch Ciprofloxacin 400mg IV Q12H (active since 05/03/17) and Flagyl 500mg IVQ8H (active since 05/03/17)-->switched to Primaxin 500mg IV Q 6H (active since 05/05/17) 4). Elevated LFTs * Likely secondary to the Cholecystitis, Pancreatitis * Abnormal Liver anatomy per report of MRCP, per recommended for followup CT in 3-6 months * Hepatitis panel normal * ALT downtrending; AST normalized 5). Leukocytosis * Contributing: Cholecystitis, Gallstone Pancreatitis, Enteritis/Entercolitis * Infectious Disease (Dr. Cheung)-->help appreciated * Recommendation to switch Ciprofloxacin 400mg IV Q12H (active since 05/03/17) and Flagyl 500mg IVQ8H (active since 05/03/17)-->switched to Primaxin 500mg IV Q 6H (active since 05/05/17) * F/U Blood Culture (05/03/17): no growth after 48 hours X2 * F/U Urine Culture: no growth * Order for procalcitonin 6) Electrolyte Imbalances * Replete potassium and magnesium as needed 7) Impaired glucose tolerance * patient is not diabetic; a1c: 5.9 * Will need follow-up a1c in one year to prevent overt diabetes. 8). Prophylaxis * Dilaudid 0.5mg IVPQ 4H pain moderate PRN * Protonix 40 mg IV 1x/day * Hold Heparin 5,000 units SC Q8H for tenative OR tomorrow and Bilateral SCDs * Colace 100 mg PO TID * Zofran 4 mg IV Q6h PRN N/V Disposition: GI signed off. Patient's white count continues to rise. Infectious Disease consult. General surgery is planning for tentative lap yared tomorrow . Awaiting chest xray.
[2017-05-05] MEDS ORDERED: Magnesium Sulfate 1 gm in D5W 1 GM/100 ML BAG IVPB SCH (07:15)
[2017-05-05 08:34] LABS: BASO # 0.1 K/uL (0.0-0.2); RED CELL DISTRIBUTION WIDTH 13.6 % (11.5-14.5)
--- NOTE | 2017-05-05 08:36 | CP.PCM.PN ---
Subjective - Date & Time of Evaluation Date of Evaluation: 05/05/17 Time of Evaluation: 11:17 - Subjective Subjective: General Surgery: Dr Headley Pt S&E. BEATRICE. Reports pain is significantly improved. Denies N/V, F/C. Tolerating CLD. OOB and ambulating. Understands plans for lap yared tomorrow. Objective - Vital Signs/Intake and Output Vital Signs (last 24 hours): Temp Pulse Resp BP Pulse Ox 98.7 F 72 20 107/70 96 05/05/17 07:15 05/05/17 07:15 05/05/17 07:15 05/05/17 07:15 05/05/17 07:15 Intake and Output: 05/05/17 05/05/17 06:59 18:59 Intake Total 2750 Output Total 0 Balance 2750 - Medications Medications: Current Medications Docusate Sodium (Colace) 100 mg PO TID [facility] Last Admin: 05/04/17 17:22 Dose: Not Given Heparin Sodium (Porcine) (Heparin) 5,000 units SC Q8 [facility] Last Admin: 05/05/17 05:58 Dose: 5,000 units Hydromorphone HCl (Dilaudid) 0.5 mg IVP Q4H PRN PRN Reason: Pain, moderate (4-7) Lactated Ringer's (Lactated Ringer's) 1,000 mls @ 250 mls/hr IV .Q4H [facility] Last Admin: 05/05/17 08:12 Dose: 250 mls/hr Ciprofloxacin (Cipro 400mg/200ml Dsw) 400 mg in 200 mls @ 133 mls/hr IVPB Q12H [facility] Last Admin: 05/05/17 03:34 Dose: 133 mls/hr Metronidazole (Flagyl) 500 mg in 100 mls @ 100 mls/hr IVPB Q8 [facility] Last Admin: 05/05/17 05:58 Dose: 100 mls/hr Potassium Chloride (Potassium Chloride 20 Meq/100 Ml) 20 meq in 100 mls @ 50 mls/hr IVPB ONCE ONE Stop: 05/05/17 09:03 Ondansetron HCl (Zofran Inj) 4 mg IVP Q6H PRN PRN Reason: Nausea/Vomiting Pantoprazole Sodium (Protonix Inj) 40 mg IVP DAILY [facility] - Labs Labs: 05/04/17 07:34 05/04/17 19:49 - Constitutional Appears: Non-toxic, No Acute Distress - Head Exam Head Exam: NORMAL INSPECTION - ENT Exam ENT Exam: Mucous Membranes Moist - Respiratory Exam Respiratory Exam: absent: Accessory Muscle Use, Respiratory Distress - Cardiovascular Exam Cardiovascular Exam: REGULAR RHYTHM. absent: Tachycardia - GI/Abdominal Exam GI & Abdominal Exam: Soft, Tenderness (epigastric but improved). absent: Distended, Firm, Guarding - Extremities Exam Extremities Exam: absent: Pedal Edema - Neurological Exam Neurological Exam: Alert, Awake, Oriented x3 Assessment and Plan - Assessment and Plan (Free Text) Assessment: 56F with gallstone pancreatitis and acute cholecystitis Plan: pancreatitis resolving, cholecystitis persists plan for OR for lap yared tomorrow 10AM NPO @ [place] EKG - pre-op cont fluids @ 200-250 d/w Dr Fang Patton, PGY3
[2017-05-05 08:45] LABS: BASO % 0.4 % (0.0-2.0); EOS % 0.1 % (0.0-4.0); HEMATOCRIT 42.5 % (34.0-47.0); LYMPH # 1.3 K/uL (1.0-4.3); LYMPH % 5.3 % (20.0-40.0); MEAN CELL VOLUME 93.4 fL (81.0-99.0); MEAN CORPUSCULAR HEMOGLOBIN 31.8 pg (27.0-31.0); MEAN CORPUSCULAR HGB CONC 34.1 g/dL (33.0-37.0); MONO # 0.9 K/uL (0.0-0.8); MONO % 3.9 % (0.0-10.0); NRBC % 0.4 % (0.0-2.0); PLATELET COUNT 257 K/uL (130-400); WHITE BLOOD COUNT 24.2 K/uL (4.8-10.8)
[2017-05-05 08:51] LABS: ALB/GLOB RATIO 0.9 (1.0-2.1); ALKALINE PHOSPHATASE 77 U/L (38-126); ALT/SGPT 66 U/L (9-52); AST/SGOT 28 U/L (14-36); BLOOD UREA NITROGEN 10 mg/dL (7-17); CALCIUM 7.4 mg/dl (8.6-10.4); CARBON DIOXIDE 26 mmol/L (22-30); CHLORIDE 98 mmol/L (98-107); GFR AFRICAN-AMERICAN > 60; GLUCOSE,RANDOM 95 mg/dL (65-105); MAGNESIUM 1.8 mg/dL (1.6-2.3); PHOSPHOROUS 2.7 mg/dL (2.5-4.5); POTASSIUM 3.8 mmol/L (3.6-5.2); SODIUM 129 mmol/L (132-148); TOTAL PROTEIN 7.2 g/dL (6.3-8.3)
[2017-05-05] MEDS: Sodium Chloride 0.9% 1,000 ML IV SCH ×4 (09:30→21:12)
[2017-05-05 09:52] LABS: NEUTROPHIL 93 % (50-75); TOTAL CELLS COUNTED 100
[2017-05-05] MEDS ORDERED: Imipenem/Cilastatin 500 MG in Dextrose 5% In Water 100 ML IVPB SCH (20:00)
[2017-05-05] MEDS: Imipenem/Cilastatin 500 MG in Dextrose 5% In Water 250 ML IVPB SCH (21:11)
[2017-05-06] MEDS: Imipenem/Cilastatin 500 MG in Dextrose 5% In Water 250 ML IVPB SCH ×3 (01:31→19:27)
[2017-05-06] MEDS: Sodium Chloride 0.9% 1,000 ML IV SCH ×2 (01:31→05:28)
[2017-05-06 06:36] LABS: BASO # 0.1 K/uL (0.0-0.2); BASO % 0.4 % (0.0-2.0); EOS % 0.1 % (0.0-4.0); HEMATOCRIT 36.6 % (34.0-47.0); LYMPH # 1.1 K/uL (1.0-4.3); LYMPH % 5.6 % (20.0-40.0); MEAN CELL VOLUME 93.5 fL (81.0-99.0); MEAN CORPUSCULAR HEMOGLOBIN 31.8 pg (27.0-31.0); MEAN PLATELET VOLUME 10.4 fL (7.2-11.7); MONO # 1.2 K/uL (0.0-0.8); MONO % 6.1 % (0.0-10.0); PLATELET COUNT 230 K/uL (130-400); RED CELL DISTRIBUTION WIDTH 13.3 % (11.5-14.5); WHITE BLOOD COUNT 19.7 K/uL (4.8-10.8)
[2017-05-06 06:41] LABS: INR 1.3
--- NOTE | 2017-05-06 06:47 | CP.PCM.PN ---
<Cruz Hooker - Last Filed: 05/06/17 18:41> Subjective - Date & Time of Evaluation Date of Evaluation: 05/06/17 Time of Evaluation: 09:00 - Subjective Subjective: Medicine note for Dr. Yu Patient seen and examined at bedside. Patient reports improvement in abdominal pain to 3/10 and is passing flatus. Patient is for OR later this morning and had a bowel movement just prior to being transported for her laparascopic cholecystectomy. Objective - Vital Signs/Intake and Output Vital Signs (last 24 hours): Temp Pulse Resp BP Pulse Ox 99.4 F 75 20 151/84 H 94 L 05/06/17 04:30 05/06/17 04:30 05/06/17 04:30 05/06/17 04:30 05/05/17 23:30 Intake and Output: 05/05/17 05/06/17 18:59 06:59 Intake Total 4000 Balance 4000 - Medications Medications: Current Medications Docusate Sodium (Colace) 100 mg PO TID [facility] Last Admin: 05/05/17 14:27 Dose: Not Given Heparin Sodium (Porcine) (Heparin) 5,000 units SC Q8 [facility] Last Admin: 05/05/17 14:26 Dose: 5,000 units Hydromorphone HCl (Dilaudid) 0.5 mg IVP Q4H PRN PRN Reason: Pain, moderate (4-7) Sodium Chloride (Sodium Chloride 0.9%) 1,000 mls @ 250 mls/hr IV .Q4H [facility] Last Admin: 05/06/17 05:28 Dose: 250 mls/hr Imipenem/Cilastatin Sodium 500 (mg/ Dextrose) 250 mls @ 100 mls/hr IVPB Q6H [facility] Last Admin: 05/06/17 01:31 Dose: 100 mls/hr Ondansetron HCl (Zofran Inj) 4 mg IVP Q6H PRN PRN Reason: Nausea/Vomiting Pantoprazole Sodium (Protonix Inj) 40 mg IVP DAILY [facility] Last Admin: 05/05/17 11:12 Dose: 40 mg - Labs Labs: 05/05/17 08:17 05/05/17 08:17 - Constitutional Appears: No Acute Distress - Head Exam Head Exam: ATRAUMATIC, NORMOCEPHALIC - Eye Exam Eye Exam: EOMI, PERRL - ENT Exam ENT Exam: Mucous Membranes Moist - Respiratory Exam Respiratory Exam: Clear to Ausculation Bilateral. absent: Rales, Rhonchi, Wheezes - Cardiovascular Exam Cardiovascular Exam: REGULAR RHYTHM, +S1, +S2 - GI/Abdominal Exam GI & Abdominal Exam: Soft, Tenderness (diffuse tenderness but concentrated in the epigastric region), Normal Bowel Sounds - Extremities Exam Extremities Exam: absent: Pedal Edema, Tenderness - Neurological Exam Neurological Exam: Alert, Awake, Oriented x3 - Psychiatric Exam Psychiatric exam: Normal Affect, Normal Mood - Skin Skin Exam: Dry, Warm Assessment and Plan - Assessment and Plan (Free Text) Plan: Pancreatitis Surgery consult, Dr. Headley----> Help appreciated * Management as per recommendation On admission: Lipase 21706 Amylase 3706 05/02 AST/ALT:263/212 Imaging: CT Abdomen/Pelvis: Pancreatitis with inflammatory change in the gastric antrum, duodenum and jejunum and free fluid; fecalized ileal loops in the pelvis suggest partial obstruction; enteritis versus enterocolitis. Gallbladder is partially distended. Common duct is prominent. There is fluid in the left colic gutter. There is pericholecystic fluid. Pancreas is diffusely enlarged. There is pancreatic and peripancreatic edema. MRCP: Findings consistent with cholecystitis. No evidence of choledocholithiasis. CBD measuring 6 mm. Medications/Management: NPO LR @ 250 mls/hr Dilaudid 0.4 mg IV Q4 prn pain Cipro 400mg IV Q12H (Started 05/03 and D/C'ed on 05/05) Flagyl 500mg IV Q8H (Started 05/03 and D/C'ed on 05/05) Primaxin 500 mg IV Q6H (started on 05/05) Labs: * 05/03 Lipid panel: Trigylcerides 61, Cholesterol 170, LDL 120, HDL 44 * Lipase 2352 on 05/04 Plan for Laparascopic cholecystectomy later this morning. Partial small bowel obstruction CT Abdomen/Pelvis: fecalized ileal loops in the pelvis suggest partial obstruction Surgery consult, Dr. Headley----> Help appreciated * Management as per recommendation Management: * NPO and fluid hydration Patient had bowel movement on 05/06/17. Leukocytosis On admission: WBC: 17.5, no bandemia On 05/04: WBC increased to 19.5 Day's criteria of 3--transfer to telemetry for monitoring due to increased risk of mortality ID Dr. Cheung consulted, help appreciated Per Dr. Cheung's recommendations, Cipro and Flagyl were D/C'ed on 05/05/17 and Primaxin 500 mg Q6H was started in place Elevated liver enzymes Surgery consult, Dr. Headley----> Help appreciated * Management as per recommendation On admission: 05/02 AST/ALT:263/212 LFTs downtrending Imaging: CT Abdomen/Pelvis: Gallbladder is partially distended. Common duct is prominent. There is fluid in the left colic gutter. There is pericholecystic fluid. Elevated random blood glucose level On admission: * 156 HgbA1C 5.9 Accuchecks Q8H Prophylaxis GI: Protonix 40mg IV daily DVT: SCDs, Heparin 5000 units SC Q8 Duoneb prn post-op dyspnea Case DW Dr. Aimee Hooker PGY-1 <Anat Yu V - Last Filed: 05/07/17 00:41> Objective - Vital Signs/Intake and Output Vital Signs (last 24 hours): Temp Pulse Resp BP Pulse Ox 98.1 F 69 20 123/77 94 L 05/06/17 16:00 05/06/17 19:28 05/06/17 16:00 05/06/17 16:00 05/06/17 14:33 Intake and Output: 05/06/17 05/07/17 18:59 06:59 Intake Total 1500 1040 Balance 1500 1040 - Medications Medications: Current Medications Albuterol/Ipratropium (Duoneb 3 Mg/0.5 Mg (3 Ml) Ud) 3 ml INH RQ6 PRN PRN Reason: Shortness of Breath Docusate Sodium (Colace) 100 mg PO TID [facility] Last Admin: 05/05/17 14:27 Dose: Not Given Heparin Sodium (Porcine) (Heparin) 5,000 units SC Q8 [facility] Last Admin: 05/05/17 14:26 Dose: 5,000 units Hydromorphone HCl (Dilaudid) 0.5 mg IVP Q4H PRN PRN Reason: Pain, moderate (4-7) Lactated Ringer's (Lactated Ringer's) 1,000 mls @ 100 mls/hr IV .Q10H [facility] Last Admin: 05/06/17 19:27 Dose: 100 mls/hr Imipenem/Cilastatin Sodium 500 (mg/ Sodium Chloride) 100 mls @ 100 mls/hr IV Q6H [facility] Ondansetron HCl (Zofran Inj) 4 mg IVP Q6H PRN PRN Reason: Nausea/Vomiting Pantoprazole Sodium (Protonix Inj) 40 mg IVP DAILY [facility] Last Admin: 05/06/17 11:14 Dose: Not Given - Labs Labs: 05/06/17 06:26 05/06/17 10:00 PT 15.2 SECONDS (9.7-12.2) H 05/06/17 06:26 INR 1.3 05/06/17 06:26 APTT 32 SECONDS (21-34) 05/06/17 06:26 Attending/Attestation - Attestation I have personally seen and examined this patient.: Yes I have fully participated in the care of the patient.: Yes I have reviewed all pertinent clinical information, including history, physical exam and plan: Yes Notes (Text): This is late computer entry 05/06/17 Patient seen, examined, and case discussed with day-time resident. Patient seen this morning with son awaiting transport for surgery. There was controversy regarding potassium given the lab at one point received the wrong tube for potassium. True potassium is 3.3/3.4 and patient did receive one K rider. D/C IV fluids given congestion on chest xray. Patient had bowel movements prior to going to OR in light of bowel obstruction, now improving. Patient to go to OR for lap yared and possible intraoperative cholangiogram. Discussed with ID, white count came down, improving with change of antibiotic. Will continue to monitor possible change to Levofloxocin. Assessments: 1). Acute Pancreatitis * Ransons Criteria: 3 (Age, WBC, And AST) * Transferred to telemetry given Day's Criteria 05/04 * GI: Dr. Luna-->help appreciated-->signed off 05/04 * General surgery: Dr. Headley-->help appreciated * Lap yared today this morning * LR 250cc/hr (since 05/03/17) * MRCP (05/04): no pancreatic mass. Findings consistent with acute pancreatitis. Findings concerning for cholecystitis. No evidence of biliary obstruction. Additional minor findings above. Common bile duct normal in caliber , measuring 6mm. No evidence of choledocholithasis * Abdominal US (05/03/17): partially distended gallbladder with multiple gallstones and 4mm gallbladder wall thickening. and minimal pericholecystic fluid. Right upper quadrant tenderingers. Prominent common bile duct measuring 7mm. * CT abdomen/pelvis (05/03/17): pancreatitis with inflammatory change in gastric antrum, duodenum and jejenum and free fluid. fecalized ileal loops in the pelvis suggest partial obstruction, enteritis versus enterocolitis. * Lipid panel: within normal 2). Partial Small Bowel Obstruction * She is not vomiting today. Patient had tremendous bowel movements prior to OR 05/06 * General surgery: Dr. Headley-->help appreciated * Obstruction Series (05/02) shows fecal retention in the right colon and rectum with nonspecific small bowel gas pattern 3). Cholecystitis * General surgery: Dr. Headley-->help appreciated * OR today 05/06 * LR 250cc/hr (since 05/03/17) * MRCP (05/04): no pancreatic mass. Findings consistent with acute pancreatitis. Findings concerning for cholecystitis. No evidence of biliary obstruction. Additional minor findings above. Common bile duct normal in caliber , measuring 6mm. No evidence of choledocholithasis * Abdominal US (05/03/17): partially distended gallbladder with multiple gallstones and 4mm gallbladder wall thickening. and minimal pericholecystic fluid. Right upper quadrant tenderingers. Prominent common bile duct measuring 7mm. * CT abdomen/pelvis (05/03/17): pancreatitis with inflammatory change in gastric antrum, duodenum and jejenum and free fluid. fecalized ileal loops in the pelvis suggest partial obstruction, enteritis versus enterocolitis. * Infectious Disease (Dr. Cheung)-->help appreciated * Recommendation to switch Ciprofloxacin 400mg IV Q12H (active since 05/03/17) and Flagyl 500mg IVQ8H (active since 05/03/17)-->switched to Primaxin 500mg IV Q 6H (active since 05/05/17) 4). Elevated LFTs * Likely secondary to the Cholecystitis, Pancreatitis * Abnormal Liver anatomy per report of MRCP, per recommended for followup CT in 3-6 months * Hepatitis panel normal * ALT downtrending; AST normalized 5). Leukocytosis * Contributing: Cholecystitis, Gallstone Pancreatitis, Enteritis/Entercolitis * Infectious Disease (Dr. Cheung)-->help appreciated * Recommendation to switch Ciprofloxacin 400mg IV Q12H (active since 05/03/17) and Flagyl 500mg IVQ8H (active since 05/03/17)-->switched to Primaxin 500mg IV Q 6H (active since 05/05/17) * Blood Culture (05/03/17): no growth after 3 days X2 * Urine Culture: no growth * procalcitonin: 0.86 6) Electrolyte Imbalances * Replete potassium and magnesium as needed 7) Impaired glucose tolerance * patient is not diabetic; a1c: 5.9 * Will need follow-up a1c in one year to prevent overt diabetes. 8). Prophylaxis * Dilaudid 0.5mg IVPQ 4H pain moderate PRN * Protonix 40 mg IV 1x/day * Hold Heparin 5,000 units SC Q8H for tenative OR tomorrow and Bilateral SCDs * Colace 100 mg PO TID * Zofran 4 mg IV Q6h PRN N/V Disposition: GI signed off. Patient's white count improved. Patient had low grade fever: 100.2F prior to OR. Patient's antibiotic changed day before. Infectious Disease consult. Patient went for OR today. Will need to monitor post -op and f/u with surgery to determine when she is stable for discharge.
[2017-05-06 07:01] LABS: ALB/GLOB RATIO 1.2 (1.0-2.1); ALKALINE PHOSPHATASE 81 U/L (38-126); ALT/SGPT 41 U/L (9-52); AST/SGOT 23 U/L (14-36); BILIRUBIN,TOTAL 0.6 mg/dL (0.2-1.3); BLOOD UREA NITROGEN 7 mg/dL (7-17); CALCIUM 7.2 mg/dl (8.6-10.4); CARBON DIOXIDE 27 mmol/L (22-30); CHLORIDE 99 mmol/L (98-107); GFR AFRICAN-AMERICAN > 60; GLUCOSE,RANDOM 89 mg/dL (65-105); MAGNESIUM 1.7 mg/dL (1.6-2.3); PHOSPHOROUS 2.4 mg/dL (2.5-4.5); POTASSIUM 2.8 mmol/L (3.6-5.2); SODIUM 132 mmol/L (132-148); TOTAL PROTEIN 5.3 g/dL (6.3-8.3)
[2017-05-06 08:13] LABS: NEUTROPHIL 76 % (50-75); REACTIVE LYMPHOCYTES 1 % (0-0); TOTAL CELLS COUNTED 100
[2017-05-06 08:14] LABS: LARGE PLATELETS PRESENT
[2017-05-06] MEDS ORDERED: Bupivacaine-Epi 0.5%-1:200,000 PF Inj IJ ONE (11:14)
[2017-05-06] MEDS ORDERED: Iohexol 240 (50 ml) ONE (11:29)
[2017-05-06] MEDS ORDERED: Propofol 10 mg/ml Inj (20 ML) ONE ×2 (11:32→12:41)
[2017-05-06] MEDS ORDERED: Midazolam 2 MG/2 ML VIAL ONE (11:32)
[2017-05-06] MEDS ORDERED: Neostigmine Methylsulfate 3mg/3ml Syringe IV ONE (12:27)
[2017-05-06 12:33] LABS: BLOOD UREA NITROGEN 7 mg/dL (7-17)
[2017-05-06 12:34] LABS: GFR AFRICAN-AMERICAN > 60
--- NOTE | 2017-05-06 12:54 | PCM.SURG1 ---
Surgeon's Initial Post Op Note - Surgeon's Notes Surgeon: Dr. Headley Geophysics Scientist: Abdi PGY3, Hayden PGY1 Type of Anesthesia: General Endo Pre-Operative Diagnosis: Acute Cholecystitis, Gallstone Pancreatitis Operative Findings: see operative report Post-Operative Diagnosis: same Operation Performed: Laparascopic Cholecystectomy; Attempted Intraoperative Cholangiogram Specimen/Specimens Removed: Gallbladder Estimated Blood Loss: EBL {In ML}: 20 Blood Products Given: N/A Drains Used: No Drains Post-Op Condition: Good Date of Surgery/Procedure: 05/06/17 Time of Surgery/Procedure: 12:54
[2017-05-06] MEDS ORDERED: HYDROmorphone 0.5 mg/0.5 ml ISec IVP PRN (13:01)
[2017-05-06 13:32] LABS: POTASSIUM 3.3 mmol/L (3.6-5.2)
--- NOTE | 2017-05-06 13:57 | RAD ---
HISTORY: preadmission baseline COMPARISON: No prior. FINDINGS: LUNGS: No active pulmonary disease. PLEURA: No significant pleural effusion identified, no pneumothorax apparent. CARDIOVASCULAR: Normal. OSSEOUS STRUCTURES: No significant abnormalities. VISUALIZED UPPER ABDOMEN: Normal. OTHER FINDINGS: None. IMPRESSION: No active disease.
--- NOTE | 2017-05-06 17:45 | CP.PCM.CON ---
History of Present Illness - History of Present Illness History of Present Illness: dictated Past Patient History - Past Medical History & Family History Past Medical History?: Yes - Past Social History Smoking Status: Never Smoked - CARDIAC Hx Cardiac Disorders: No - PULMONARY Hx Respiratory Disorders: No - NEUROLOGICAL Hx Neurological Disorder: No - HEENT Hx HEENT Problems: No - RENAL Hx Chronic Kidney Disease: No - ENDOCRINE/METABOLIC Hx Endocrine Disorders: No - HEMATOLOGICAL/ONCOLOGICAL Hx Blood Disorders: No - INTEGUMENTARY Hx Dermatological Problems: No - MUSCULOSKELETAL/RHEUMATOLOGICAL Hx Falls: No - GASTROINTESTINAL Hx Gastrointestinal Disorders: Yes Other/Comment: "intestinal surgery 15-18 years ago from [place]" - GENITOURINARY/GYNECOLOGICAL Hx Genitourinary Disorders: No - PSYCHIATRIC Hx Substance Use: No - SURGICAL HISTORY Hx Surgeries: Yes Other/Comment: "intestinal surgery 15-18 years ago from [place]" - ANESTHESIA Hx Anesthesia: Yes Hx Anesthesia Reactions: No Hx Malignant Hyperthermia: No Meds Allergies/Adverse Reactions: Allergies Allergy/AdvReac Type Severity Reaction Status Date / Time No Known Allergies Allergy Verified 05/02/17 23:13 - Medications Medications: Current Medications Docusate Sodium (Colace) 100 mg PO TID [facility] Last Admin: 05/05/17 14:27 Dose: Not Given Heparin Sodium (Porcine) (Heparin) 5,000 units SC Q8 [facility] Last Admin: 05/05/17 14:26 Dose: 5,000 units Hydromorphone HCl (Dilaudid) 0.5 mg IVP Q4H PRN PRN Reason: Pain, moderate (4-7) Imipenem/Cilastatin Sodium 500 (mg/ Dextrose) 250 mls @ 100 mls/hr IVPB Q6H [facility] Stop: 05/06/17 20:01 Last Admin: 05/06/17 09:05 Dose: 100 mls/hr Lactated Ringer's (Lactated Ringer's) 1,000 mls @ 100 mls/hr IV .Q10H [facility] Imipenem/Cilastatin Sodium 500 (mg/ Sodium Chloride) 100 mls @ 100 mls/hr IV Q6H [facility] Ondansetron HCl (Zofran Inj) 4 mg IVP Q6H PRN PRN Reason: Nausea/Vomiting Pantoprazole Sodium (Protonix Inj) 40 mg IVP DAILY [facility] Last Admin: 05/06/17 11:14 Dose: Not Given Results - Vital Signs Recent Vital Signs: Last Vital Signs Temp 98.3 F 05/06/17 14:33 Pulse 82 05/06/17 14:33 Resp 20 05/06/17 14:33 BP 122/76 05/06/17 14:33 Pulse Ox 94 L 05/06/17 14:33 - Labs Result Diagrams: 05/06/17 06:26 05/06/17 10:00 Labs: Laboratory Results - last 24 hr 05/05/17 05/05/17 05/06/17 21:16 21:55 06:21 WBC RBC Hgb Hct MCV MCH MCHC RDW Plt Count MPV Neut % (Auto) Lymph % (Auto) [place] % (Auto) Eos % (Auto) Baso % (Auto) Neut # Lymph # [place] # Eos # Baso # Neutrophils % (Manual) Band Neutrophils % Lymphocytes % (Manual) Reactive Lymphs % Monocytes % (Manual) Platelet Estimate Large Platelets RBC Morphology PT INR APTT Sodium Potassium Chloride Carbon Dioxide Anion Gap BUN Creatinine Est GFR ( Amer) Est GFR (Non-Af Amer) POC Glucose (mg/dL) 80 79 Random Glucose Calcium Phosphorus Magnesium Total Bilirubin AST ALT Alkaline Phosphatase Total Protein Albumin Globulin Albumin/Globulin Ratio Procalcitonin 0.86 H Blood Type Antibody Screen 05/06/17 05/06/17 05/06/17 06:26 06:26 06:26 WBC 19.7 H RBC 3.91 Hgb 12.4 D Hct 36.6 MCV 93.5 MCH 31.8 H MCHC 34.0 RDW 13.3 Plt Count 230 MPV 10.4 Neut % (Auto) 87.8 H Lymph % (Auto) 5.6 L [place] % (Auto) 6.1 Eos % (Auto) 0.1 Baso % (Auto) 0.4 Neut # 17.3 H Lymph # 1.1 [place] # 1.2 H Eos # 0.0 Baso # 0.1 Neutrophils % (Manual) 76 H Band Neutrophils % 5 H Lymphocytes % (Manual) 8 L Reactive Lymphs % 1 H Monocytes % (Manual) 10 Platelet Estimate Normal Large Platelets Present RBC Morphology Normal PT INR APTT Sodium 132 Potassium 2.8 L Chloride 99 Carbon Dioxide 27 Anion Gap 8 L BUN 7 Creatinine 0.6 L Est GFR ( Amer) > 60 Est GFR (Non-Af Amer) > 60 POC Glucose (mg/dL) Random Glucose 89 Calcium 7.2 L Phosphorus 2.4 L Magnesium 1.7 Total Bilirubin 0.6 AST 23 ALT 41 Alkaline Phosphatase 81 Total Protein 5.3 L Albumin 2.8 L Globulin 2.5 Albumin/Globulin Ratio 1.2 Procalcitonin Blood Type O POSITIVE Antibody Screen Negative 05/06/17 05/06/17 05/06/17 06:26 09:48 10:00 WBC RBC Hgb Hct MCV MCH MCHC RDW Plt Count MPV Neut % (Auto) Lymph % (Auto) [place] % (Auto) Eos % (Auto) Baso % (Auto) Neut # Lymph # [place] # Eos # Baso # Neutrophils % (Manual) Band Neutrophils % Lymphocytes % (Manual) Reactive Lymphs % Monocytes % (Manual) Platelet Estimate Large Platelets RBC Morphology PT 15.2 H INR 1.3 APTT 32 Sodium Potassium 4.5 3.3 L Chloride Carbon Dioxide Anion Gap BUN 7 Creatinine 0.5 L Est GFR ( Amer) > 60 Est GFR (Non-Af Amer) > 60 POC Glucose (mg/dL) Random Glucose Calcium Phosphorus Magnesium Total Bilirubin AST ALT Alkaline Phosphatase Total Protein Albumin Globulin Albumin/Globulin Ratio Procalcitonin Blood Type Antibody Screen 05/06/17 16:50 WBC RBC Hgb Hct MCV MCH MCHC RDW Plt Count MPV Neut % (Auto) Lymph % (Auto) [place] % (Auto) Eos % (Auto) Baso % (Auto) Neut # Lymph # [place] # Eos # Baso # Neutrophils % (Manual) Band Neutrophils % Lymphocytes % (Manual) Reactive Lymphs % Monocytes % (Manual) Platelet Estimate Large Platelets RBC Morphology PT INR APTT Sodium Potassium Chloride Carbon Dioxide Anion Gap BUN Creatinine Est GFR ( Amer) Est GFR (Non-Af Amer) POC Glucose (mg/dL) 95 Random Glucose Calcium Phosphorus Magnesium Total Bilirubin AST ALT Alkaline Phosphatase Total Protein Albumin Globulin Albumin/Globulin Ratio Procalcitonin Blood Type Antibody Screen
[2017-05-06] MEDS ORDERED: Albuterol-Ipratrop 3 mg / 0.5 (3 ml) UD INH PRN (18:40)
[2017-05-06] MEDS: Lactated Ringer's 1,000 ML IV SCH (19:27)
--- NOTE | 2017-05-06 19:43 | OP ---
PROCEDURE DATE: 05/06/2017 PREOPERATIVE DIAGNOSIS: Acute calculous cholecystitis and pancreatitis. POSTOPERATIVE DIAGNOSIS: Acute calculous cholecystitis and pancreatitis. PROCEDURE: Laparoscopic cholecystectomy, attempted cholangiogram. FINDINGS: The gallbladder was markedly distended, filled with adhesions involving omentum and also portion of the duodenum. The cystic duct appeared to be narrowed down and would not admit the Cholangiocath. No other pathology noted except dense adhesions noted around the umbilical area. ESTIMATED BLOOD LOSS: 10 to 15 mL. DESCRIPTION OF PROCEDURE: Under general anesthesia, patient was prepared and draped in the usual sterile fashion. A Veress needle was inserted in the mid epigastric area. A 5 mm trocar was inserted on the right upper quadrant and then another 5 mm trocar located in the epigastric area. The adhesions that were noted in the umbilical area, these were taken down with blunt dissection and then a 10 mm trocar was inserted just above the umbilicus but well away from the adhesions that were partially taken down. The lens was then inserted in the umbilical area, patient was placed in a reverse Trendelenburg position, turned over to the left side. Gallbladder was grasped at the area of the ampulla, traction was applied. All the adhesions were taken down. The cystic duct was then isolated, it was opened but attempts at cannulating it was unsuccessful; therefore it was transected between Hemoclips. The cystic artery was also treated in the similar fashion. The gallbladder was then removed from the liver bed using electrocautery and then was extracted through the umbilical port. The area was irrigated with copious amount of saline solution, irrigating fluid suctioned out. CO2 allowed to escape from the peritoneal cavity. Trocars removed, the wound closed in a routine fashion. Estimated blood loss was about [address] Andrew Patton was the virtual assistant for this procedure. Ag Headley MD
--- NOTE | 2017-05-06 23:28 | CARD ---
APPROVED REPORT EKG Measurement Heart [id number] <Conclusion> Normal sinus rhythm Cannot rule out Anterior infarct, age undetermined Abnormal ECG
[2017-05-07] MEDS: Lactated Ringer's 1,000 ML IV SCH ×3 (02:11→10:02)
--- NOTE | 2017-05-07 03:21 | CON ---
DATE: INFECTIOUS DISEASE CONSULTATION: CONSULT REQUESTED BY: Dr. Anat Yu. HISTORY OF PRESENT ILLNESS: This patient is a 56-year-old female. She came in with abdominal pain, which has been there for almost a week. She has been feeling sick and she had tightness and abdominal pain, and she denied any fever or chills, but her white count was elevated yesterday, she has acute cholecystitis, and underwent laparoscopic cholecystectomy today. Her white count was elevated, hence we changed the antibiotic to Primaxin yesterday. She denies any other problems at this time. She is trying to eat. She is postop, has oxygen on, and denies any abdominal pain at this time. Her family members are at the bedside. Past medical history is negative except for intestinal surgery due to constipation or obstruction in [place] 15 to 18 years ago. Family history of diabetes. She takes no medications. She is not allergic to any medicine. REVIEW OF SYSTEMS: Otherwise was totally negative. SOCIAL HISTORY: She never smoked. No drinking. ALLERGIES: No allergies. MEDICATIONS: She is on Colace, heparin subQ, Dilaudid, imipenem, lactated Ringer's, Zofran, pantoprazole. She was before on Cipro and Flagyl, which was changed. PHYSICAL EXAMINATION VITAL SIGNS: I find her temperature is 98.3, pulse 82, blood pressure 122/76, saturation was 94%, she is on 2 L nasal O2. She denies any history of asthma. She is obese. HEENT: Head is atraumatic and normocephalic. Pupils are reacting to light. Tongue is moist. NECK: Supple. JVP is flat. LUNGS: Clear. No crackles or rhonchi heard. HEART: S1 and S2 regular. ABDOMEN: Has laparoscopic crease areas, otherwise unremarkable. EXTREMITIES: Have no edema, clubbing or cyanosis. LABORATORY DATA: White count is 19.7, this is from this morning, hemoglobin 12.4, hematocrit 36.7, platelet count is 230. This showed 87.8 neutrophils and 5.6 . She had a white count of 24 yesterday. She also has decreased potassium, which is being supplemented. Last potassium is also 3.3, but she received guidance. Need to repeat it tomorrow. Calcitonin is 0.86. An MRCP was done and showed diffusely thickened trace pericholecystic fluid, cholelithiasis; findings are consistent with cholecystitis. CBD normal, measuring 6 mm. No evidence of biliary obstruction. ASSESSMENT AND PLAN: The patient underwent laparoscopic cholecystectomy. Still has high white count, needs to be followed up. Leave the imipenem on at this time, and once they improved, then we will decide about oral antibiotics. May go home on Levaquin if the white count comes down to normal. To follow surgical evaluation. Polina Cheung MD
[2017-05-07 06:44] LABS: ALB/GLOB RATIO 1.1 (1.0-2.1); ALKALINE PHOSPHATASE 87 U/L (38-126); ALT/SGPT 49 U/L (9-52); AST/SGOT 53 U/L (14-36); BILIRUBIN,TOTAL 0.4 mg/dL (0.2-1.3); BLOOD UREA NITROGEN 13 mg/dL (7-17); CALCIUM 7.6 mg/dl (8.6-10.4); CARBON DIOXIDE 28 mmol/L (22-30); CHLORIDE 102 mmol/L (98-107); GFR AFRICAN-AMERICAN > 60; GLUCOSE,RANDOM 142 mg/dL (65-105); POTASSIUM 3.2 mmol/L (3.6-5.2); SODIUM 134 mmol/L (132-148); TOTAL PROTEIN 5.4 g/dL (6.3-8.3)
[2017-05-07 06:59] LABS: BASO % 0.1 % (0.0-2.0); HEMATOCRIT 33.7 % (34.0-47.0); LYMPH # 0.6 K/uL (1.0-4.3); LYMPH % 4.1 % (20.0-40.0); MEAN CELL VOLUME 93.3 fL (81.0-99.0); MEAN CORPUSCULAR HEMOGLOBIN 32.6 pg (27.0-31.0); MEAN CORPUSCULAR HGB CONC 34.9 g/dL (33.0-37.0); MEAN PLATELET VOLUME 10.6 fL (7.2-11.7); MONO # 0.3 K/uL (0.0-0.8); MONO % 2.3 % (0.0-10.0); PLATELET COUNT 232 K/uL (130-400); RED CELL DISTRIBUTION WIDTH 13.3 % (11.5-14.5)
--- NOTE | 2017-05-07 07:04 | CP.PCM.PN ---
<Cruz Hooker - Last Filed: 05/07/17 16:41> Subjective - Date & Time of Evaluation Date of Evaluation: 05/07/17 Time of Evaluation: 09:00 - Subjective Subjective: Medicine note for Dr. Yu Patient seen and examined at bedside. Patient is s/p day 1 of laparascopic cholecystectomy. Patient states that her pain is much improved and she tolerated her diet last night without nausea or vomiting. Patient also passing flatus and had a bowel movement today. Patient denies fever, chills, chest pain , dyspnea, dysuria. Objective - Vital Signs/Intake and Output Vital Signs (last 24 hours): Temp Pulse Resp BP Pulse Ox 98.8 F 61 20 116/61 95 05/07/17 04:00 05/07/17 04:00 05/07/17 04:00 05/07/17 04:00 05/07/17 04:00 Intake and Output: 05/07/17 05/07/17 06:59 18:59 Intake Total 1040 Balance 1040 - Medications Medications: Current Medications Albuterol/Ipratropium (Duoneb 3 Mg/0.5 Mg (3 Ml) Ud) 3 ml INH RQ6 PRN PRN Reason: Shortness of Breath Docusate Sodium (Colace) 100 mg PO TID [facility] Last Admin: 05/05/17 14:27 Dose: Not Given Heparin Sodium (Porcine) (Heparin) 5,000 units SC Q8 [facility] Last Admin: 05/05/17 14:26 Dose: 5,000 units Hydromorphone HCl (Dilaudid) 0.5 mg IVP Q4H PRN PRN Reason: Pain, moderate (4-7) Lactated Ringer's (Lactated Ringer's) 1,000 mls @ 100 mls/hr IV .Q10H [facility] Last Admin: 05/07/17 02:11 Dose: 100 mls/hr Imipenem/Cilastatin Sodium 500 (mg/ Sodium Chloride) 100 mls @ 100 mls/hr IV Q6H [facility] Last Admin: 05/07/17 02:10 Dose: 100 mls/hr Ondansetron HCl (Zofran Inj) 4 mg IVP Q6H PRN PRN Reason: Nausea/Vomiting Pantoprazole Sodium (Protonix Inj) 40 mg IVP DAILY [facility] Last Admin: 05/06/17 11:14 Dose: Not Given - Labs Labs: 05/06/17 06:26 05/07/17 06:12 PT 15.2 SECONDS (9.7-12.2) H 05/06/17 06:26 INR 1.3 05/06/17 06:26 APTT 32 SECONDS (21-34) 05/06/17 06:26 - Constitutional Appears: No Acute Distress - Head Exam Head Exam: ATRAUMATIC, NORMOCEPHALIC - Eye Exam Eye Exam: EOMI, PERRL - ENT Exam ENT Exam: Mucous Membranes Moist - Respiratory Exam Respiratory Exam: Clear to Ausculation Bilateral. absent: Rales, Rhonchi, Wheezes - Cardiovascular Exam Cardiovascular Exam: REGULAR RHYTHM, +S1, +S2 - GI/Abdominal Exam GI & Abdominal Exam: Soft, Normal Bowel Sounds. absent: Guarding, Tenderness Additional comments: dressings on abdomen c/d/i - Extremities Exam Extremities Exam: absent: Pedal Edema, Tenderness - Neurological Exam Neurological Exam: Alert, Awake, Oriented x3 - Psychiatric Exam Psychiatric exam: Normal Affect, Normal Mood - Skin Skin Exam: Dry, Warm Assessment and Plan - Assessment and Plan (Free Text) Plan: Gallstone Pancreatitis also complicated by Acute cholecystitis Surgery consult, Dr. Headley----> Help appreciated * Management as per recommendation On admission: Lipase 78704 Amylase 3706 05/02 AST/ALT:263/212 Imaging: CT Abdomen/Pelvis: Pancreatitis with inflammatory change in the gastric antrum, duodenum and jejunum and free fluid; fecalized ileal loops in the pelvis suggest partial obstruction; enteritis versus enterocolitis. Gallbladder is partially distended. Common duct is prominent. There is fluid in the left colic gutter. There is pericholecystic fluid. Pancreas is diffusely enlarged. There is pancreatic and peripancreatic edema. MRCP: Findings consistent with cholecystitis. No evidence of choledocholithiasis. CBD measuring 6 mm. Previous management with NPO, Lactated ringers at 250 cc/hr, and pain control. Lipase downtrended during hospital course. Laparascopic cholecystectomy on 05/06/17. Antibiotics: * Cipro 400mg IV Q12H (Started 05/03 and D/C'ed on 05/05) * Flagyl 500mg IV Q8H (Started 05/03 and D/C'ed on 05/05) The above were discontinued due to rising WBC and ID Dr. Cheung was consulted who recommended Primaxin 500 mg IV Q6H which started on 05/[address] Cheung's recommendation, patient is to stay one more night and be discharged on Levaquin 500 mg PO once daily. Partial small bowel obstruction CT Abdomen/Pelvis: fecalized ileal loops in the pelvis suggest partial obstruction Surgery consult, Dr. Headley----> Help appreciated * Management as per recommendation Management: * NPO and fluid hydration This has resolved as patient had bowel movement on 05/06/17 and 05/07/17. Leukocytosis On admission: WBC: 17.5, no bandemia On 05/04: WBC increased to 19.5 Day's criteria of 3--transfer to telemetry for monitoring due to increased risk of mortality ID Dr. Cheung consulted, help appreciated Per Dr. Cheung's recommendations, Cipro and Flagyl were D/C'ed on 05/05/17 and Primaxin 500 mg Q6H was started in place Elevated liver enzymes Surgery consult, Dr. Headley----> Help appreciated * Management as per recommendation On admission: 05/02 AST/ALT:263/212 LFTs downtrending Imaging: CT Abdomen/Pelvis: Gallbladder is partially distended. Common duct is prominent. There is fluid in the left colic gutter. There is pericholecystic fluid. Elevated random blood glucose level On admission: * 156 HgbA1C 5.9 Accuchecks Q8H Prophylaxis GI: Protonix 40mg IV daily DVT: SCDs, Heparin 5000 units SC Q8 Duoneb prn post-op dyspnea Note: Patient will be discharged with prescriptions for Levaquin and Bacid as probiotic. Patient may picker feeder Prilosec OTC. Case DW Dr. Aimee Hooker PGY-1 <Anat Yu V - Last Filed: 05/08/17 23:28> Objective - Vital Signs/Intake and Output Vital Signs (last 24 hours): Temp Pulse Resp BP Pulse Ox 98.6 F 75 17 137/84 98 05/08/17 13:25 05/08/17 13:25 05/08/17 13:25 05/08/17 13:25 05/08/17 13:25 Intake and Output: 05/08/17 05/09/17 18:59 06:59 Intake Total 750 Balance 750 - Labs Labs: 05/08/17 06:31 05/08/17 06:31 PT 15.2 SECONDS (9.7-12.2) H 05/06/17 06:26 INR 1.3 05/06/17 06:26 APTT 32 SECONDS (21-34) 05/06/17 06:26 Attending/Attestation - Attestation I have personally seen and examined this patient.: Yes I have fully participated in the care of the patient.: Yes I have reviewed all pertinent clinical information, including history, physical exam and plan: Yes Notes (Text): This is late computer entry 05/07/17 Patient seen, examined, and case discussed with day-time resident. Patient seen this morning with daughter at bedside. Patient reports has had flatus and bowel movement postoperative day 1. Patient's pain scale 2/10. Discussed with surgery resident, patient is stable for discharge from their standpoint. Discussed with ID, white count is trending down, with mild transaminitis. Recommends additional day prior to discharge. Assessments: 1). Acute Pancreatitis * R[facility]ons Criteria: 3 (Age, WBC, And AST) * Transferred to telemetry given [place]'s Criteria 05/04 * GI: Dr. Luna-->help appreciated-->signed off 05/04 * General surgery: Dr. Headley-->help appreciated * Lap yared 05/06 POD 1 * LR 100cc/hr (since 05/03/17) * MRCP (05/04): no pancreatic mass. Findings consistent with acute pancreatitis. Findings concerning for cholecystitis. No evidence of biliary obstruction. Additional minor findings above. Common bile duct normal in caliber , measuring 6mm. No evidence of choledocholithasis * Abdominal US (05/03/17): partially distended gallbladder with multiple gallstones and 4mm gallbladder wall thickening. and minimal pericholecystic fluid. Right upper quadrant tenderness. Prominent common bile duct measuring 7mm. * CT abdomen/pelvis (05/03/17): pancreatitis with inflammatory change in gastric antrum, duodenum and jejenum and free fluid. fecalized ileal loops in the pelvis suggest partial obstruction, enteritis versus enterocolitis. * Lipid panel: within normal 2). Partial Small Bowel Obstruction * She is not vomiting today. Patient had tremendous bowel movements prior to OR 05/06 * Has had bowel movement postoperative OR * General surgery: Dr. Headley-->help appreciated * Obstruction Series (05/02) shows fecal retention in the right colon and rectum with nonspecific small bowel gas pattern 3). Cholecystitis * General surgery: Dr. Headley-->help appreciated POD 1 Lap yared * LR 100cc/hr (since 05/03/17) * MRCP (05/04): no pancreatic mass. Findings consistent with acute pancreatitis. Findings concerning for cholecystitis. No evidence of biliary obstruction. Additional minor findings above. Common bile duct normal in caliber , measuring 6mm. No evidence of choledocholithasis * Abdominal US (05/03/17): partially distended gallbladder with multiple gallstones and 4mm gallbladder wall thickening. and minimal pericholecystic fluid. Right upper quadrant tenderingers. Prominent common bile duct measuring 7mm. * CT abdomen/pelvis (05/03/17): pancreatitis with inflammatory change in gastric antrum, duodenum and jejenum and free fluid. fecalized ileal loops in the pelvis suggest partial obstruction, enteritis versus enterocolitis. * Infectious Disease (Dr. Cheung)-->help appreciated * Recommendation to switch Ciprofloxacin 400mg IV Q12H (active since 05/03/17) and Flagyl 500mg IVQ8H (active since 05/03/17)-->switched to Primaxin 500mg IV Q 6H (active since 05/05/17) 4). Elevated LFTs * Likely secondary to the Cholecystitis, Pancreatitis * Abnormal Liver anatomy per report of MRCP, per recommended for followup CT in 3-6 months * Hepatitis panel normal * Monitor LFTs 5). Leukocytosis * Contributing: Cholecystitis, Gallstone Pancreatitis, Enteritis/Entercolitis * Infectious Disease (Dr. Cheung)-->help appreciated * Recommendation to switch Ciprofloxacin 400mg IV Q12H (active since 05/03/17) and Flagyl 500mg IVQ8H (active since 05/03/17)-->switched to Primaxin 500mg IV Q 6H (active since 05/05/17) * Blood Culture (05/03/17): no growth after 4 days X2 * Urine Culture: no growth * procalcitonin: 0.86 6) Electrolyte Imbalances * Replete potassium and magnesium as needed 7) Impaired glucose tolerance * patient is not diabetic; a1c: 5.9 * Will need follow-up a1c in one year to prevent overt diabetes. 8). Prophylaxis * Dilaudid 0.5mg IVPQ 4H pain moderate PRN * Protonix 40 mg IV 1x/day * Colace 100 mg PO TID * Zofran 4 mg IV Q6h PRN N/V Disposition: GI signed off. Patient's white count improved. Surgery stable from their standpoint for discharge.ID recommends additional day on IV antibiotic prior to discharge planning.
[2017-05-07] MEDS ORDERED: Oxycodone/Acetaminophen 5/325 mg Tab PO PRN (07:51)
--- NOTE | 2017-05-07 07:51 | CP.PCM.PN ---
Subjective - Date & Time of Evaluation Date of Evaluation: 05/07/17 Time of Evaluation: 06:40 - Subjective Subjective: Gen Sx: Dr Headley Pt S&E. BEATRICE. POD#1 s/p lap yared. Tolerated well. This morning reports feeling much better. Pain is minimal. Tolerating diet. No N/V, F/C, SOB or chest pain. Passing flatus. Objective - Vital Signs/Intake and Output Vital Signs (last 24 hours): Temp Pulse Resp BP Pulse Ox 98.8 F 61 20 116/61 95 05/07/17 04:00 05/07/17 04:00 05/07/17 04:00 05/07/17 04:00 05/07/17 04:00 Intake and Output: 05/07/17 05/07/17 06:59 18:59 Intake Total 1040 Balance 1040 - Medications Medications: Current Medications Albuterol/Ipratropium (Duoneb 3 Mg/0.5 Mg (3 Ml) Ud) 3 ml INH RQ6 PRN PRN Reason: Shortness of Breath Docusate Sodium (Colace) 100 mg PO TID [facility] Last Admin: 05/05/17 14:27 Dose: Not Given Heparin Sodium (Porcine) (Heparin) 5,000 units SC Q8 [facility] Last Admin: 05/05/17 14:26 Dose: 5,000 units Hydromorphone HCl (Dilaudid) 0.5 mg IVP Q4H PRN PRN Reason: Pain, moderate (4-7) Lactated Ringer's (Lactated Ringer's) 1,000 mls @ 100 mls/hr IV .Q10H [facility] Last Admin: 05/07/17 02:11 Dose: 100 mls/hr Imipenem/Cilastatin Sodium 500 (mg/ Sodium Chloride) 100 mls @ 100 mls/hr IV Q6H [facility] Last Admin: 05/07/17 07:46 Dose: 100 mls/hr Ondansetron HCl (Zofran Inj) 4 mg IVP Q6H PRN PRN Reason: Nausea/Vomiting Pantoprazole Sodium (Protonix Inj) 40 mg IVP DAILY [facility] Last Admin: 05/06/17 11:14 Dose: Not Given Potassium Chloride (K-Dur 20 Meq Er Tab) 40 meq PO DAILY [facility] - Labs Labs: 05/07/17 06:12 05/07/17 06:12 PT 15.2 SECONDS (9.7-12.2) H 05/06/17 06:26 INR 1.3 05/06/17 06:26 APTT 32 SECONDS (21-34) 05/06/17 06:26 - Constitutional Appears: Non-toxic, No Acute Distress - Respiratory Exam Respiratory Exam: absent: Accessory Muscle Use, Respiratory Distress - Cardiovascular Exam Cardiovascular Exam: REGULAR RHYTHM. absent: Tachycardia - GI/Abdominal Exam GI & Abdominal Exam: Soft, Tenderness (post-op and appropriate). absent: Distended, Guarding, Rigid Additional comments: dressing c/d/i - Neurological Exam Neurological Exam: Alert, Awake, Oriented x3 - Psychiatric Exam Psychiatric exam: Normal Affect, Normal Mood - Skin Skin Exam: Normal Color, Warm Assessment and Plan - Assessment and Plan (Free Text) Assessment: 56F POD#1 s/p lap yared for acute cholecystitis and gallstone pancreatitis Plan: Tbili normal WBC trending down Tolerating diet. Pt clear for d/c from surgical standpoint as infectious source has been removed. Per ID would like normalization of leukocytosis so keep pt likely 1 more day for IV abx. will cont to follow while in house f/u in office in 1 week d/w Dr Fang Patton, PGY3
[2017-05-07 08:31] LABS: NEUTROPHIL 95 % (50-75); TOTAL CELLS COUNTED 100
[2017-05-07] MEDS: Potassium Chloride 20 mEq ER Tab PO SCH (10:01)
--- NOTE | 2017-05-07 16:33 | CP.PCM.PN ---
Subjective - Date & Time of Evaluation Date of Evaluation: 05/07/17 Time of Evaluation: 03:15 - Subjective Subjective: dictated Objective - Vital Signs/Intake and Output Vital Signs (last 24 hours): Temp Pulse Resp BP Pulse Ox 98.2 F 69 18 112/70 96 05/07/17 15:43 05/07/17 15:43 05/07/17 15:43 05/07/17 15:43 05/07/17 15:43 Intake and Output: 05/07/17 05/07/17 06:59 18:59 Intake Total 1040 Balance 1040 - Medications Medications: Current Medications Albuterol/Ipratropium (Duoneb 3 Mg/0.5 Mg (3 Ml) Ud) 3 ml INH RQ6 PRN PRN Reason: Shortness of Breath Docusate Sodium (Colace) 100 mg PO TID [facility] Last Admin: 05/07/17 14:30 Dose: 100 mg Heparin Sodium (Porcine) (Heparin) 5,000 units SC Q8 [facility] Last Admin: 05/07/17 14:30 Dose: 5,000 units Hydromorphone HCl (Dilaudid) 0.5 mg IVP Q4H PRN PRN Reason: Pain, moderate (4-7) Lactated Ringer's (Lactated Ringer's) 1,000 mls @ 100 mls/hr IV .Q10H [facility] Last Admin: 05/07/17 10:02 Dose: Not Given Imipenem/Cilastatin Sodium 500 (mg/ Sodium Chloride) 100 mls @ 100 mls/hr IV Q6H [facility] Last Admin: 05/07/17 14:30 Dose: 100 mls/hr Ondansetron HCl (Zofran Inj) 4 mg IVP Q6H PRN PRN Reason: Nausea/Vomiting Oxycodone/Acetaminophen (Percocet 5/325 Mg Tab) 1 tab PO Q4H PRN PRN Reason: Pain, Mild (1-3) Stop: 05/10/17 07:52 Pantoprazole Sodium (Protonix Inj) 40 mg IVP DAILY [facility] Last Admin: 05/07/17 10:01 Dose: 40 mg Potassium Chloride (K-Dur 20 Meq Er Tab) 40 meq PO DAILY [facility] Last Admin: 05/07/17 10:01 Dose: 40 meq - Labs Labs: 05/07/17 06:12 05/07/17 06:12 PT 15.2 SECONDS (9.7-12.2) H 05/06/17 06:26 INR 1.3 05/06/17 06:26 APTT 32 SECONDS (21-34) 05/06/17 06:26
--- NOTE | 2017-05-07 23:26 | PN ---
DATE INFECTIOUS DISEASE FOLLOWUP SUBJECTIVE: The patient is afebrile. She states she had a bowel movement. She denies much pain. No nausea. No vomiting. She is using a spirometry. PHYSICAL EXAMINATION: VITAL SIGNS: T-max is 98.2, pulse 69, blood pressure 112/74, respirations are 18. HEENT: Head is atraumatic and normocephalic. NECK: Supple. LUNGS: Clear. No crackles or rales present. HEART: S1 and S2 is regular. ABDOMEN: Mild postop tenderness. Otherwise, Steri-Strips are intact, no problem there. EXTREMITIES: Have no edema. LABORATORY DATA: Her white count is coming down, it is 14 today, hemoglobin 11.8, hematocrit 33.7, platelet count is 232. Potassium was low and was supplemented. BUN is 13 and creatinine 0.6. AST, ALT were mildly elevated. The patient's cultures are negative. ASSESSMENT AND PLAN: She is status post cholecystectomy. She came with gallstone-related pancreatitis. Magnetic resonance cholangiopancreatography was negative. I suggest at this time to continue IV antibiotics, and if her white count decreases further, she can go home on oral antibiotics, which could be Levaquin. Polina Cheung MD
[2017-05-08] MEDS: Lactated Ringer's 1,000 ML IV SCH ×2 (02:03→08:29)
[2017-05-08 06:52] LABS: BASO # 0.1 K/uL (0.0-0.2); BASO % 0.4 % (0.0-2.0); EOS % 0.2 % (0.0-4.0); HEMATOCRIT 35.9 % (34.0-47.0); LYMPH # 1.5 K/uL (1.0-4.3); LYMPH % 10.1 % (20.0-40.0); MEAN CELL VOLUME 93.6 fL (81.0-99.0); MEAN CORPUSCULAR HGB CONC 34.2 g/dL (33.0-37.0); MEAN PLATELET VOLUME 10.2 fL (7.2-11.7); MONO # 0.8 K/uL (0.0-0.8); MONO % 5.3 % (0.0-10.0); RED CELL DISTRIBUTION WIDTH 13.7 % (11.5-14.5); WHITE BLOOD COUNT 14.5 K/uL (4.8-10.8)
--- NOTE | 2017-05-08 08:03 | CP.PCM.PN ---
Subjective - Date & Time of Evaluation Date of Evaluation: 05/08/17 Time of Evaluation: 07:00 - Subjective Subjective: Surgical Progress Note: Patient was seen and examined at bedside in the AM. POD #2 s/p lap yared. Patient states she is feeling well. Patient continues to tolerate her diet. She denies nausea, vomiting, fever, shortness of breath or chest pain. Objective - Vital Signs/Intake and Output Vital Signs (last 24 hours): Temp Pulse Resp BP Pulse Ox 98 F 54 L 20 120/64 95 05/07/17 23:40 05/08/17 04:01 05/07/17 23:40 05/07/17 23:40 05/07/17 23:40 - Medications Medications: Current Medications Albuterol/Ipratropium (Duoneb 3 Mg/0.5 Mg (3 Ml) Ud) 3 ml INH RQ6 PRN PRN Reason: Shortness of Breath Docusate Sodium (Colace) 100 mg PO TID [facility] Last Admin: 05/07/17 17:34 Dose: 100 mg Heparin Sodium (Porcine) (Heparin) 5,000 units SC Q8 [facility] Last Admin: 05/08/17 05:46 Dose: 5,000 units Hydromorphone HCl (Dilaudid) 0.5 mg IVP Q4H PRN PRN Reason: Pain, moderate (4-7) Lactated Ringer's (Lactated Ringer's) 1,000 mls @ 100 mls/hr IV .Q10H [facility] Last Admin: 05/08/17 02:03 Dose: 100 mls/hr Imipenem/Cilastatin Sodium 500 (mg/ Sodium Chloride) 100 mls @ 100 mls/hr IV Q6H [facility] Last Admin: 05/08/17 02:00 Dose: 100 mls/hr Ondansetron HCl (Zofran Inj) 4 mg IVP Q6H PRN PRN Reason: Nausea/Vomiting Oxycodone/Acetaminophen (Percocet 5/325 Mg Tab) 1 tab PO Q4H PRN PRN Reason: Pain, Mild (1-3) Stop: 05/10/17 07:52 Pantoprazole Sodium (Protonix Inj) 40 mg IVP DAILY [facility] Last Admin: 05/07/17 10:01 Dose: 40 mg Potassium Chloride (K-Dur 20 Meq Er Tab) 40 meq PO DAILY [facility] Last Admin: 05/07/17 10:01 Dose: 40 meq - Labs Labs: 05/08/17 06:31 05/07/17 06:12 PT 15.2 SECONDS (9.7-12.2) H 05/06/17 06:26 INR 1.3 05/06/17 06:26 APTT 32 SECONDS (21-34) 05/06/17 06:26 - Constitutional Appears: No Acute Distress - Head Exam Head Exam: ATRAUMATIC, NORMAL INSPECTION - Eye Exam Eye Exam: EOMI, Normal appearance - ENT Exam ENT Exam: Mucous Membranes Moist - Respiratory Exam Respiratory Exam: NORMAL BREATHING PATTERN - Cardiovascular Exam Cardiovascular Exam: +S1, +S2 - GI/Abdominal Exam GI & Abdominal Exam: Soft. absent: Distended, Guarding - Extremities Exam Extremities Exam: Normal Inspection - Neurological Exam Neurological Exam: Alert, Awake, Oriented x3 - Psychiatric Exam Psychiatric exam: Normal Affect, Normal Mood - Skin Skin Exam: Dry, Intact, Normal Color, Warm Assessment and Plan - Assessment and Plan (Free Text) Assessment: 56 year old female POD#2 s/p lap yared for acute cholecystitis and gallstone pancreatitis Tbili normal Tolerating diet. Patient is clear for d/c home today from surgical standpoint as infectious source has been removed. f/u in office in 1 week Krista Sheets PGY-1
[2017-05-08 08:39] LABS: ALB/GLOB RATIO 0.8 (1.0-2.1); ALKALINE PHOSPHATASE 74 U/L (38-126); ALT/SGPT 58 U/L (9-52); AST/SGOT 39 U/L (14-36); BILIRUBIN,TOTAL 0.4 mg/dL (0.2-1.3); BLOOD UREA NITROGEN 14 mg/dL (7-17); CALCIUM 7.5 mg/dl (8.6-10.4); CARBON DIOXIDE 29 mmol/L (22-30); CHLORIDE 103 mmol/L (98-107); GFR AFRICAN-AMERICAN > 60; GLUCOSE,RANDOM 91 mg/dL (65-105); POTASSIUM 3.2 mmol/L (3.6-5.2); SODIUM 136 mmol/L (132-148); TOTAL PROTEIN 6.4 g/dL (6.3-8.3)
[2017-05-08] MEDS ORDERED: Potassium Chloride 20 mEq ER Tab PO ONE (09:30)
[2017-05-08] MEDS: Potassium Chloride 20 mEq ER Tab PO SCH (13:28)
[2017-05-08 13:33] VITALS: BP 137/84; PULSE 75; RESP 17; TEMP 98.6; O2SAT 98
--- NOTE | 2017-05-08 14:05 | CP.PCM.DIS ---
<Tricia Love - Last Filed: 05/08/17 14:37> Provider - Provider Date of Admission: 05/03/17 01:39 Attending physician: Anat Yu DO Consults: Surgery: Fang Infectious Disease: Jonatan GI: Manati Time Spent in preparation of Discharge (in minutes): 35 Diagnosis - Discharge Diagnosis (1) Acute cholecystitis Status: Acute (2) Elevated liver enzymes Status: Acute (3) Leukocytosis Status: Acute (4) Pancreatitis Status: Acute (5) Glucose intolerance (impaired glucose tolerance) Status: Acute (6) Partial small bowel obstruction Status: Acute (7) Prophylactic measure Status: Acute Hospital Course - Lab Results Lab Results: Micro Results 05/03/17 11:06 Blood-Venous Blood Culture - Final NO GROWTH AFTER 5 DAYS 05/03/17 11:06 Blood-Venous Gram Stain - Final TEST NOT PERFORMED 05/03/17 09:45 Blood-Venous Blood Culture - Final NO GROWTH AFTER 5 DAYS 05/03/17 09:45 Blood-Venous Gram Stain - Final TEST NOT PERFORMED 05/03/17 19:55 Urine,Clean Catch Urine Culture - Final No Growth (<1,000 CFU/ML) Most Recent Lab Values WBC 14.5 K/uL (4.8-10.8) H 05/08/17 06:31 RBC 3.83 Mil/uL (3.80-5.20) 05/08/17 06:31 Hgb 12.3 g/dL (11.0-16.0) 05/08/17 06:31 Hct 35.9 % (34.0-47.0) 05/08/17 06:31 MCV 93.6 fL (81.0-99.0) 05/08/17 06:31 MCH 32.0 pg (27.0-31.0) H 05/08/17 06:31 MCHC 34.2 g/dL (33.0-37.0) 05/08/17 06:31 RDW 13.7 % (11.5-14.5) 05/08/17 06:31 Plt Count 271 K/uL (130-400) 05/08/17 06:31 MPV 10.2 fL (7.2-11.7) 05/08/17 06:31 Neut % (Auto) 84.0 % (50.0-75.0) H 12/22/17 06:31 Lymph % (Auto) 10.1 % (20.0-40.0) L 05/08/17 06:31 [place] % (Auto) 5.3 % (0.0-10.0) 05/08/17 06:31 Eos % (Auto) 0.2 % (0.0-4.0) 05/08/17 06:31 Baso % (Auto) 0.4 % (0.0-2.0) 05/08/17 06:31 Neut # 12.2 K/uL (1.8-7.0) H 05/08/17 06:31 Lymph # 1.5 K/uL (1.0-4.3) 05/08/17 06:31 [place] # 0.8 K/uL (0.0-0.8) 05/08/17 06:31 Eos # 0.0 K/uL (0.0-0.7) 05/08/17 06:31 Baso # 0.1 K/uL (0.0-0.2) 05/08/17 06:31 Neutrophils % (Manual) 95 % (50-75) H 05/07/17 06:12 Band Neutrophils % 1 % (0-2) 05/07/17 06:12 Lymphocytes % (Manual) 3 % (20-40) L 05/07/17 06:12 Reactive Lymphs % 1 % (0-0) H 05/06/17 06:26 Monocytes % (Manual) 1 % (0-10) 05/07/17 06:12 Platelet Estimate Normal (NORMAL) 05/07/17 06:12 Large Platelets Present 05/06/17 06:26 RBC Morphology Normal 05/07/17 06:12 PT 15.2 SECONDS (9.7-12.2) H 05/06/17 06:26 INR 1.3 05/06/17 06:26 APTT 32 SECONDS (21-34) 05/06/17 06:26 Sodium 136 mmol/L (132-148) 05/08/17 06:31 Potassium 3.2 mmol/L (3.6-5.2) L 05/08/17 06:31 Chloride 103 mmol/L (98-107) 05/08/17 06:31 Carbon Dioxide 29 mmol/L (22-30) 05/08/17 06:31 Anion Gap 8 (10-20) L 05/08/17 06:31 BUN 14 mg/dL (7-17) 05/08/17 06:31 Creatinine 0.7 mg/dL (0.7-1.2) 05/08/17 06:31 Est GFR ( Amer) > 60 05/08/17 06:31 Est GFR (Non-Af Amer) > 60 05/08/17 06:31 POC Glucose (mg/dL) 120 mg/dL (65-110) H 05/07/17 20:54 Random Glucose 91 mg/dL (65-105) 05/08/17 06:31 Hemoglobin A1c 5.9 % (4.2-6.5) 05/03/17 08:47 Calcium 7.5 mg/dl (8.6-10.4) L 05/08/17 06:31 Phosphorus 2.4 mg/dL (2.5-4.5) L 05/06/17 06:26 Magnesium 2.0 mg/dL (1.6-2.3) 05/07/17 06:12 Total Bilirubin 0.4 mg/dL (0.2-1.3) 05/08/17 06:31 AST 39 U/L (14-36) H D 05/08/17 06:31 ALT 58 U/L (9-52) H 05/08/17 06:31 Alkaline Phosphatase 74 U/L (38-126) 05/08/17 06:31 Total Protein 6.4 g/dL (6.3-8.3) 05/08/17 06:31 Albumin 2.9 g/dL (3.5-5.0) L 05/08/17 06:31 Globulin 3.5 gm/dL (2.2-3.9) 05/08/17 06:31 Albumin/Globulin Ratio 0.8 (1.0-2.1) L 05/08/17 06:31 Triglycerides 61 mg/dL (0-149) 05/03/17 08:47 Cholesterol 170 mg/dL (0-199) 05/03/17 08:47 LDL Cholesterol Direct 120 mg/dL (0-129) 05/03/17 08:47 HDL Cholesterol 44 mg/dL (30-70) 05/03/17 08:47 Amylase 3706 U/L (30-110) H 05/03/17 01:38 Lipase 294 U/L (23-300) 05/05/17 08:17 Procalcitonin 0.86 NG/ML (0.19-0.49) H 05/05/17 21:55 Urine Color Yellow (YELLOW) 05/02/17 23:53 Urine Clarity Clear (Clear) 05/02/17 23:53 Urine pH 6.0 (5.0-8.0) 05/02/17 23:53 Ur Specific [place] 1.021 (1.003-1.030) 05/02/17 23:53 Urine Protein 1+ mg/dL (NEGATIVE) H 05/02/17 23:53 Urine Glucose (UA) Normal mg/dL (Normal) 05/02/17 23:53 Urine Ketones Negative mg/dL (NEGATIVE) 05/02/17 23:53 Urine Blood Negative (NEGATIVE) 05/02/17 23:53 Urine Nitrate Negative (NEGATIVE) 05/02/17 23:53 Urine Bilirubin Negative (NEGATIVE) 05/02/17 23:53 Urine Urobilinogen 2.0 mg/dL (0.2-1.0) H 05/02/17 23:53 Ur Leukocyte Esterase Neg Moris/uL (Negative) 05/02/17 23:53 Urine WBC (Auto) 3 /hpf (0-5) 05/02/17 23:53 Urine RBC (Auto) 5 /hpf (0-3) H 05/02/17 23:53 Ur Squamous Epith Cells 10 /hpf (0-5) H 05/02/17 23:53 Hepatitis A IgM Ab Negative (NEGATIVE) 05/03/17 08:47 Hep Bs Antigen Negative (NEGATIVE) 05/03/17 08:47 Hep B Core IgM Ab Negative (NEGATIVE) 05/03/17 08:47 Hepatitis C Antibody Negative (NEGATIVE) 05/03/17 08:47 Blood Type O POSITIVE 05/06/17 06:26 Antibody Screen Negative 05/06/17 06:26 - Hospital Course Hospital Course: Patient is a 56 year old female with no past medical history who was brought to the ED by her daughters with complaint of abdominal pain that started yesterday between 5-6pm, which patient describes as "tightness" that is diffuse. Patient reports pain associated with nausea and vomiting. Abdominal pain is located in the epigastric area and radiates to the RLQ and LLQ. Described as sharp and severe in quality. Emesis x10 reported, clear-yellow fluid, no blood. Patient was found to have amylase of 3706 and lipase of 32,575 with elevated LFTs 262/212. CT abdomen/pelvis showed Pancreatitis with inflammatory change in the gastric antrum,duodenum and jejunum and free fluid; fecalized ileal loops in the pelvis suggest partial obstruction; enteritis versus enterocolitis. Gallbladder is partially distended. There is pericholecystic fluid. Pancreas is diffusely enlarged. There is pancreatic and peripancreatic edema. (please see full report). Abdominal US showed partially distended gallbladder with multiple gallstones (see full report). Patient was admitted for gallstone pancreatitis. General surgery and GI were consulted. Patient was made NPO and started on aggressive IV fluid hydration and antibiotics (Ciprofloxacin and Flagyl). ID was consulted for elevated white blood cell count. Patient was started on Primaxin for antibiotic coverage. Patient was taken for MRCP which showed Findings consistent with cholecystitis. No evidence of choledocholithiasis. CBD measuring 6 mm. Patient was taken to the OR by general surgery for Laparoscopic Cholecystectomy. Patient tolerated the procedure well. Patient was monitored postoperatively. During hospital stay, lipase and LFTs trended down. Blood and urine cultures showed no growth. On day of discharge, patient was doing well. Pain was controlled. She was ambulating and tolerating diet. Reports passing flatus and had a BM. Potassium was 3.2 so she was given Potassium Chloride 40 meq x 2. Patient was medically stable and clear for discharge home. Per Infectious Disease recommendations, patient was discharged home with Augmentin 1 tab PO BID x 7 days and Bacid (probiotic) 1 tab PO daily x 7 days. Patient informed to follow up with [facility] to establish care and that she will need to repeat liver function test in 1 week. Patient is also to follow up with Surgery clinic within 1 week. All questions and concerns were addressed. Discharge Exam - Head Exam Head Exam: ATRAUMATIC, NORMAL INSPECTION - Eye Exam Eye Exam: EOMI, Normal appearance - ENT Exam ENT Exam: Mucous Membranes Dry - Neck Exam Neck exam: Full Rom - Respiratory Exam Respiratory Exam: Clear to PA & Lateral, NORMAL BREATHING PATTERN, UNREMARKABLE. absent: Rales, Rhonchi, Wheezes, Respiratory Distress - Cardiovascular Exam Cardiovascular Exam: REGULAR RHYTHM, +S1, +S2 - GI/Abdominal Exam GI & Abdominal Exam: Normal Bowel Sounds, Soft, Tenderness (Appropriately tender ). absent: Firm, Rebound, Rigid Additional comments: Incisions c/d/i with steristrips - Extremities Exam Extremities exam: normal inspection, pedal pulses present - Neurological Exam Neurological exam: Alert, CN II-XII Intact, Oriented x3 - Psychiatric Exam Psychiatric exam: Normal Affect, Normal Mood - Skin Skin Exam: Normal Color, Warm Discharge Plan - Discharge Medications Prescriptions: Amoxicillin/Clavulanate [Augmentin 875 MG-125 MG] 1 tab PO BID #14 tab Lactobacillus Acidophilus [Bacid Acidophilus] 1 cap PO DAILY #7 cap - Follow Up Plan Condition: GOOD Disposition: HOME/ ROUTINE Instructions: Amoxicillin/Clavulanate Potassium (By mouth), Probiotic (By mouth ), Cholecystitis (DC), Pancreatitis (DC), Heart Healthy Diet (DC), Pain Management After Surgery (DC), Laparoscopic Cholecystectomy (DC), Leukocytosis ( DC), Leukocytosis (GEN) Additional Instructions: Patient to take Augmentin 1 tab PO BID x 7 days and Bacid (probiotic) daily. Patient establish care at [facility] [phone]. Will need repeat Liver Function Test within one week. Patient to also follow with surgery clinic for post op follow up in one week. Referrals: [facility] at [facility] [Outside] Ag Headley MD [Staff Provider] - 1 Week <Anat Yu V - Last Filed: 05/08/17 23:34> Provider - Provider Date of Admission: 05/03/17 01:39 Attending physician: Anat Yu DO Hospital Course - Lab Results Lab Results: Micro Results 05/03/17 11:06 Blood-Venous Blood Culture - Final NO GROWTH AFTER 5 DAYS 05/03/17 11:06 Blood-Venous Gram Stain - Final TEST NOT PERFORMED 05/03/17 09:45 Blood-Venous Blood Culture - Final NO GROWTH AFTER 5 DAYS 05/03/17 09:45 Blood-Venous Gram Stain - Final TEST NOT PERFORMED 05/03/17 19:55 Urine,Clean Catch Urine Culture - Final No Growth (<1,000 CFU/ML) Most Recent Lab Values WBC 14.5 K/uL (4.8-10.8) H 05/08/17 06:31 RBC 3.83 Mil/uL (3.80-5.20) 05/08/17 06:31 Hgb 12.3 g/dL (11.0-16.0) 05/08/17 06:31 Hct 35.9 % (34.0-47.0) 05/08/17 06:31 MCV 93.6 fL (81.0-99.0) 05/08/17 06:31 MCH 32.0 pg (27.0-31.0) H 05/08/17 06:31 MCHC 34.2 g/dL (33.0-37.0) 05/08/17 06:31 RDW 13.7 % (11.5-14.5) 05/08/17 06:31 Plt Count 271 K/uL (130-400) 05/08/17 06:31 MPV 10.2 fL (7.2-11.7) 05/08/17 06:31 Neut % (Auto) 84.0 % (50.0-75.0) H 05/08/17 06:31 Lymph % (Auto) 10.1 % (20.0-40.0) L 05/08/17 06:31 [place] % (Auto) 5.3 % (0.0-10.0) 05/08/17 06:31 Eos % (Auto) 0.2 % (0.0-4.0) 05/08/17 06:31 Baso % (Auto) 0.4 % (0.0-2.0) 05/08/17 06:31 Neut # 12.2 K/uL (1.8-7.0) H 05/08/17 06:31 Lymph # 1.5 K/uL (1.0-4.3) 05/08/17 06:31 [place] # 0.8 K/uL (0.0-0.8) 05/08/17 06:31 Eos # 0.0 K/uL (0.0-0.7) 05/08/17 06:31 Baso # 0.1 K/uL (0.0-0.2) 05/08/17 06:31 Neutrophils % (Manual) 95 % (50-75) H 05/07/17 06:12 Band Neutrophils % 1 % (0-2) 05/07/17 06:12 Lymphocytes % (Manual) 3 % (20-40) L 05/07/17 06:12 Reactive Lymphs % 1 % (0-0) H 05/06/17 06:26 Monocytes % (Manual) 1 % (0-10) 05/07/17 06:12 Platelet Estimate Normal (NORMAL) 05/07/17 06:12 Large Platelets Present 05/06/17 06:26 RBC Morphology Normal 05/07/17 06:12 PT 15.2 SECONDS (9.7-12.2) H 05/06/17 06:26 INR 1.3 05/06/17 06:26 APTT 32 SECONDS (21-34) 05/06/17 06:26 Sodium 136 mmol/L (132-148) 05/08/17 06:31 Potassium 3.2 mmol/L (3.6-5.2) L 05/08/17 06:31 Chloride 103 mmol/L (98-107) 05/08/17 06:31 Carbon Dioxide 29 mmol/L (22-30) 05/08/17 06:31 Anion Gap 8 (10-20) L 05/08/17 06:31 BUN 14 mg/dL (7-17) 05/08/17 06:31 Creatinine 0.7 mg/dL (0.7-1.2) 05/08/17 06:31 Est GFR ( Amer) > 60 05/08/17 06:31 Est GFR (Non-Af Amer) > 60 05/08/17 06:31 POC Glucose (mg/dL) 120 mg/dL (65-110) H 05/07/17 20:54 Random Glucose 91 mg/dL (65-105) 05/08/17 06:31 Hemoglobin A1c 5.9 % (4.2-6.5) 05/03/17 08:47 Calcium 7.5 mg/dl (8.6-10.4) L 05/08/17 06:31 Phosphorus 2.4 mg/dL (2.5-4.5) L 05/06/17 06:26 Magnesium 2.0 mg/dL (1.6-2.3) 05/07/17 06:12 Total Bilirubin 0.4 mg/dL (0.2-1.3) 05/08/17 06:31 AST 39 U/L (14-36) H D 05/08/17 06:31 ALT 58 U/L (9-52) H 05/08/17 06:31 Alkaline Phosphatase 74 U/L (38-126) 05/08/17 06:31 Total Protein 6.4 g/dL (6.3-8.3) 05/08/17 06:31 Albumin 2.9 g/dL (3.5-5.0) L 05/08/17 06:31 Globulin 3.5 gm/dL (2.2-3.9) 05/08/17 06:31 Albumin/Globulin Ratio 0.8 (1.0-2.1) L 05/08/17 06:31 Triglycerides 61 mg/dL (0-149) 05/03/17 08:47 Cholesterol 170 mg/dL (0-199) 05/03/17 08:47 LDL Cholesterol Direct 120 mg/dL (0-129) 05/03/17 08:47 HDL Cholesterol 44 mg/dL (30-70) 05/03/17 08:47 Amylase 3706 U/L (30-110) H 05/03/17 01:38 Lipase 294 U/L (23-300) 05/05/17 08:17 Procalcitonin 0.86 NG/ML (0.19-0.49) H 05/05/17 21:55 Urine Color Yellow (YELLOW) 05/02/17 23:53 Urine Clarity Clear (Clear) 05/02/17 23:53 Urine pH 6.0 (5.0-8.0) 05/02/17 23:53 Ur Specific [place] 1.021 (1.003-1.030) 05/02/17 23:53 Urine Protein 1+ mg/dL (NEGATIVE) H 05/02/17 23:53 Urine Glucose (UA) Normal mg/dL (Normal) 05/02/17 23:53 Urine Ketones Negative mg/dL (NEGATIVE) 05/02/17 23:53 Urine Blood Negative (NEGATIVE) 05/02/17 23:53 Urine Nitrate Negative (NEGATIVE) 05/02/17 23:53 Urine Bilirubin Negative (NEGATIVE) 05/02/17 23:53 Urine Urobilinogen 2.0 mg/dL (0.2-1.0) H 05/02/17 23:53 Ur Leukocyte Esterase Neg Moris/uL (Negative) 05/02/17 23:53 Urine WBC (Auto) 3 /hpf (0-5) 05/02/17 23:53 Urine RBC (Auto) 5 /hpf (0-3) H 05/02/17 23:53 Ur Squamous Epith Cells 10 /hpf (0-5) H 05/02/17 23:53 Hepatitis A IgM Ab Negative (NEGATIVE) 05/03/17 08:47 Hep Bs Antigen Negative (NEGATIVE) 05/03/17 08:47 Hep B Core IgM Ab Negative (NEGATIVE) 05/03/17 08:47 Hepatitis C Antibody Negative (NEGATIVE) 05/03/17 08:47 Blood Type O POSITIVE 05/06/17 06:26 Antibody Screen Negative 05/06/17 06:26 Attending/Attestation - Attestation I have personally seen and examined this patient.: Yes I have fully participated in the care of the patient.: Yes I have reviewed all pertinent clinical information, including history, physical exam and plan: Yes Notes (Text): Patient seen, examined, and case discussed with day-time resident. Patient seen this morning with daughter at bedside. Patient reports has had flatus and bowel movement postoperatively. Patient reports surgical site pain is minimal. Discussed with ID, recommend Augumentin 875-125mg 1 tab PO BID for 7 days with probiotic (Bacid 1 tab PO daily). Discharge order and discharge instructions discussed with day-time resident. Patient recommended to establish care in the [facility] ) and to follow-up post-operatively in Surgery clinic. New prescription: 1) Augmentin 875-125 1 tab PO BID (14 day/0 refills) 2) Bacid 1 tab PO daily (7 days) or probiotic antibiotic in lieu. Patient recommended to repeat liver functions tests when establish care in the [facility]. This is a summary of patients hospitalization. Please see EMR for further details. Discharge Diagnoses: 1). Acute Gallstone Pancreatitis--->resolved * Ransons Criteria: 3 (Age, WBC, And AST) * Transferred to telemetry given Day's Criteria 05/04 * GI: Dr. Luna-->help appreciated-->signed off 05/04 * General surgery: Dr. Headley-->help appreciated * Lap yared 05/06 POD 2 * LR 100cc/hr (since 05/03/17) * MRCP (05/04): no pancreatic mass. Findings consistent with acute pancreatitis. Findings concerning for cholecystitis. No evidence of biliary obstruction. Additional minor findings above. Common bile duct normal in caliber , measuring 6mm. No evidence of choledocholithasis * Abdominal US (05/03/17): partially distended gallbladder with multiple gallstones and 4mm gallbladder wall thickening. and minimal pericholecystic fluid. Right upper quadrant tenderness. Prominent common bile duct measuring 7mm. * CT abdomen/pelvis (05/03/17): pancreatitis with inflammatory change in gastric antrum, duodenum and jejenum and free fluid. fecalized ileal loops in the pelvis suggest partial obstruction, enteritis versus enterocolitis. * Lipid panel: within normal * GI signed off. * Per surgery, stable for discharge 2). Partial Small Bowel Obstruction-->resolved * She is not vomiting today. Patient had tremendous bowel movements prior to OR 05/06 * Has had bowel movement postoperative OR * General surgery: Dr. Headley-->help appreciated * Obstruction Series (05/02) shows fecal retention in the right colon and rectum with nonspecific small bowel gas pattern 3). Acute Cholecystitis-->Resolved * General surgery: Dr. Headley-->help appreciated POD 1 Lap yared * LR 100cc/hr (since 05/03/17) * MRCP (05/04): no pancreatic mass. Findings consistent with acute pancreatitis. Findings concerning for cholecystitis. No evidence of biliary obstruction. Additional minor findings above. Common bile duct normal in caliber , measuring 6mm. No evidence of choledocholithasis * Abdominal US (05/03/17): partially distended gallbladder with multiple gallstones and 4mm gallbladder wall thickening. and minimal pericholecystic fluid. Right upper quadrant tenderingers. Prominent common bile duct measuring 7mm. * CT abdomen/pelvis (05/03/17): pancreatitis with inflammatory change in gastric antrum, duodenum and jejenum and free fluid. fecalized ileal loops in the pelvis suggest partial obstruction, enteritis versus enterocolitis. * Infectious Disease (Dr. Cheung)-->help appreciated * Recommendation to switch Ciprofloxacin 400mg IV Q12H (active since 05/03/17) and Flagyl 500mg IVQ8H (active since 05/03/17)-->switched to Primaxin 500mg IV Q 6H (active since 05/05/17) 4). Elevated LFTs--Improving * Likely secondary to the Cholecystitis, Pancreatitis * Abnormal Liver anatomy per report of MRCP, per recommended for followup CT in 3-6 months * Hepatitis panel normal * Monitor LFTs * Repeat LFTS upon discharge 5). Leukocytosis--Improving * Contributing: Cholecystitis, Gallstone Pancreatitis, Enteritis/Entercolitis * Infectious Disease (Dr. Cheung)-->help appreciated * Recommendation to switch Ciprofloxacin 400mg IV Q12H (active since 05/03/17) and Flagyl 500mg IVQ8H (active since 05/03/17)-->switched to Primaxin 500mg IV Q 6H (active since 05/05/17) * Blood Culture (05/03/17): no growth after 4 days X2 * Urine Culture: no growth * procalcitonin: 0.86 * Afebrile for 48 hours prior to discharge. white count downtrending. Patient to complete antibiotic on discharge and follow-up in the clinc 6) Electrolyte Imbalances-->stable * Replete potassium and magnesium as needed 7) Impaired glucose tolerance * patient is not diabetic; a1c: 5.9 * Will need follow-up a1c in one year to prevent overt diabetes. 8). Prophylaxis * Dilaudid 0.5mg IVPQ 4H pain moderate PRN * Protonix 40 mg IV 1x/day * Colace 100 mg PO TID * Zofran 4 mg IV Q6h PRN N/V
== END 2017-05-08 14:24 | disposition home or self-care (01) | DRG 493 ==
LOC: C.ER 23:06 → C.9E 05-03 01:39 → C.3T 05-03 04:04 → C.6T 05-04 13:17
PROVIDERS: ADMIT Hospitalist; ATTEND Hospitalist
PROC: 0FT44ZZ Resection of Gallbladder, Percutaneous Endoscopic Approach (ICD-10-PCS; principal; 2017-05-06 10:00)
DX: K85.10 Biliary acute pancreatitis without necrosis or infection (principal); K80.00 Calculus of gallbladder with acute cholecystitis without obstruction; K56.600 Partial intestinal obstruction, unspecified as to cause; R73.02 Impaired glucose tolerance (oral); R74.8 Abnormal levels of other serum enzymes